=== PATIENT | female | born 1955 | race Caucasian/White ===

== ENCOUNTER 2016-11-02 06:20 | Inpatient (IN) | payer BC, OTHER ==
[2016-10-19 13:37] VITALS: BMI 34.0
--- NOTE | 2016-10-19 14:13 | PAT Medication Instructions ---
Service Date Oct 19, 2016. Current Home Medication List Acetaminophen (Tylenol), 1,000 MG PO TID Aspirin (Aspirin Ec), 81 MG PO QAM Atenolol (Tenormin), 100 MG PO QAM Atorvastatin (Lipitor), 40 MG PO QPM Canagliflozin (Invokana), 1 TAB PO QAM Clotrimazole W/ Betamethasone (Clotrimazole/Betamethason), 1 DOSE TOP Diltiazem Hcl (Cardizem), 120 MG PO QPM Esomeprazole Magnesium (Nexium), 40 MG PO QAM Fluticasone Propionate (Nasal) (Flonase Allergy Relief), 2 PUFFS INH for ALLERGIES Folic Amzu-Alnpfcxhzu-Vopgkmpu (Folbic), 1 TAB PO BID Gabapentin (Neurontin), 300-900 MG PO TID Glipizide (Glipizide Er), 1 TAB PO QAM Hctz/Lisinopril (Lisinopril/Hctz 20/25 Mg), 1 TAB PO QAM Levothyroxine Sodium (Synthroid), 150 MCG PO QAM Magnesium Oxide (Magnesium), 1 CAP PO QAM Melatonin (Melatonin Maximum Strengt), 1 TAB PO HS Menthol (Topical Analgesic) (Icy Hot), Unknown Dose for MUSCLE SORENESS Metformin Hcl (Glucophage), 1,000 MG PO BID Methocarbamol (Robaxin), 500 MG PO TID Multivitamin (Multivitamin), 1 TAB PO QAM Naproxen (Naprosyn), 500 MG PO BID Olanzapine (Zyprexa), 5 MG PO HS Medication Instructions For Your Scheduled Surgery - Hold the following medications 7-10 days prior to surgery per surgeon's instructions: Naproxen (Naprosyn), 500 MG PO BID - Hold the following medications 48 hours prior to surgery: Metformin Hcl (Glucophage), 1,000 MG PO BID - Hold the following medications 24 hours prior to surgery: Menthol (Topical Analgesic) (Icy Hot), Unknown Dose for MUSCLE SORENESS Clotrimazole W/ Betamethasone (Clotrimazole/Betamethason), 1 DOSE TOP - Hold the following medications the morning of surgery: Multivitamin (Multivitamin), 1 TAB PO QAM Hctz/Lisinopril (Lisinopril/Hctz 20/25 Mg), 1 TAB PO QAM Glipizide (Glipizide Er), 1 TAB PO QAM Methocarbamol (Robaxin), 500 MG PO TID Magnesium Oxide (Magnesium), 1 CAP PO QAM Canagliflozin (Invokana), 1 TAB PO QAM Folic Qgsr-Vpweccmbwy-Yplixrzx (Folbic), 1 TAB PO BID - Take the following medications the morning of surgery with a sip of water OTHERWISE NOTHING TO EAT OR DRINK AFTER MIDNIGHT: Acetaminophen (Tylenol), 1,000 MG PO TID (may take if needed up to 4 hours prior to surgery) Aspirin (Aspirin Ec), 81 MG PO QAM Atenolol (Tenormin), 100 MG PO QAM Esomeprazole Magnesium (Nexium), 40 MG PO QAM Gabapentin (Neurontin), 300-900 MG PO TID Levothyroxine Sodium (Synthroid), 150 MCG PO QAM Fluticasone Propionate (Nasal) (Flonase Allergy Relief), 2 PUFFS INH for ALLERGIES - Take the following medications as scheduled the night before surgery: Olanzapine (Zyprexa), 5 MG PO HS Acetaminophen (Tylenol), 1,000 MG PO TID Melatonin (Melatonin Maximum Strengt), 1 TAB PO HS Diltiazem Hcl (Cardizem), 120 MG PO QPM Atorvastatin (Lipitor), 40 MG PO QPM Methocarbamol (Robaxin), 500 MG PO TID Gabapentin (Neurontin), 300-900 MG PO TID Folic Bahi-Jfoxyzscep-Ttmlinws (Folbic), 1 TAB PO BID Fluticasone Propionate (Nasal) (Flonase Allergy Relief), 2 PUFFS INH for ALLERGIES If you have any questions please call us at [phone] or [phone] or [phone]
[2016-10-19 14:33] LABS: BASO % 0.3 %; BASO ABS # 0.02 K/uL (0-0.2); COMPLETE YES; EOS % 3.2 %; IG% 0.3 %; LYMPH % 26.7 %; LYMPH ABS # 2.11 K/uL (1.2-3.4); MEAN CELL VOLUME 78.7 fL (80-100); MEAN CORPUSCULAR HEMOGLOBIN 24.3 pg (25-34); MEAN CORPUSCULAR HGB CONC 30.8 g/dl (32-36); MEAN PLATELET VOLUME 10.2 fL (7.4-10.4); NEUT % 61.5 %; PLATELET COUNT 434 K/uL (130-400)
[2016-10-19 14:38] LABS: ESTIMATED AVERAGE GLUCOSE 157 mg/dl; HA1C FLAG Normal (Normal)
--- NOTE | 2016-10-19 14:38 | DIAGNOSTIC IMAGING REPORT ---
CHEST 2 VIEWS ROUTINE CLINICAL HISTORY: Preoperative chest COMPARISON STUDY: 06/29/2013 FINDINGS: The cardiac and mediastinal contours are normal. There is no evidence of focal pulmonary consolidation. There is no evidence of failure. No pleural effusions are visualized.[Degenerative changes are present within the dorsal spine IMPRESSION: No active disease in the chest. Electronically signed by: Thanh Bhandari M.D. 10/19/2016 2:36 PM Dictated Date/Time: 10/19/2016 2:35 PM
[2016-10-19 14:44] LABS: URINE APPEARANCE CLEAR (CLEAR); URINE BILIRUBIN NEG (NEG); URINE COLOR YELLOW; URINE NITRITE NEG (NEG); URINE SPECIFIC GRAVITY 1.016 (1.000-1.030); UROBILINOGEN NEG (NEG); ZZUR CULT IF INDIC CLEAN CATCH NO
[2016-10-19 14:49] LABS: MANUAL MICROSCOPIC REQUIRED? NO; REVIEW REQ? NO
[2016-10-19 14:49] LABS: INR 0.9 (0.9-1.1); PROTHROMBIN TIME (PATIENT) 10.1 SECONDS (9.0-12.0)
[2016-10-19 14:52] LABS: BUN/CREATININE RATIO 15.9 (10-20); CALCIUM 9.8 mg/dl (8.5-10.1); CREATININE 0.99 mg/dl (0.60-1.20)
--- NOTE | 2016-11-01 11:14 | HISTORY & PHYSICAL EXAMINATION ---
DATE OF ADMISSION: 11/02/2016 CHIEF COMPLAINT: Right knee pain. HISTORY OF PRESENT ILLNESS: Ms. Cazares is a 61-year-old female with a 1 year history of right knee pain. She rates her pain an 8/10. She has pain with her daily activities. She has limited standing and walking tolerance. Pain is worse with weightbearing. The patient has had injections, bracing, NSAIDs and home exercise program without relief. She has failed conservative treatment and is scheduled for a right knee replacement. PAST MEDICAL HISTORY: Hypertension, hypercholesterolemia, sleep apnea, thyroid disease, GERD and diabetes with A1c of 7.6. She denies heart disease or DVT. PAST SURGICAL HISTORY: Back surgery, D\T\C, hysterectomy, , wisdom tooth extraction; ganglion cyst, right hand. SOCIAL HISTORY: The patient denies alcohol or tobacco use. She lives in a 2-reg home. She is and works. FAMILY HISTORY: Negative for DVT. MEDICATIONS: Magnesium 500 mg daily, methocarbamol 500 mg t.i.d., levothyroxine 125 mcg daily, Invokana 300 mg daily, lisinopril/HCTZ 20/25 mg daily, metformin 1000 mg b.i.d., atenolol 100 mg daily, olanzapine 5 mg daily, diltiazem ER 120 mg daily, melatonin 5 mg, aspirin 81 mg, esomeprazole 40 mg, naproxen 500 mg b.i.d.,glipizide ER 10 mg, gabapentin 300 mg t.i.d., Flonase 2 puffs p.r.n., clotrimazole b.i.d., and Tylenol ES p.r.n. ALLERGIES: CODEINE, PYREDOL AND TIZANIDINE. REVIEW OF SYSTEMS: See HPI. Ten other systems reviewed, all negative. PHYSICAL EXAMINATION: VITAL SIGNS: Height 5 feet 1 inch, weight 178 pounds, BMI is 34. GENERAL: This is a well-developed, well-nourished female who is alert and oriented x3. Mood and affect are appropriate. HEENT: Normocephalic, atraumatic. Mucous membranes are moist and intact. NECK: Supple without lymphadenopathy. HEART: Regular rate and rhythm without murmurs, rubs or gallops. LUNGS: Clear to auscultation without wheezes or rhonchi. ABDOMEN: Soft and nontender. Bowel sounds are equal and active. EXTREMITIES: No ecchymosis, redness or warmth. She has a varus deformity. Range of motion is from 3-115 degrees with +1 to 2 laxity. She is neurovascularly intact with +5/5 strength. X-RAY EXAMINATION: AP and lateral views show joint space narrowing and osteophyte formation. IMPRESSION: Degenerative joint disease, right knee. PLAN: The patient will be admitted for a right total knee arthroplasty. We will plan on aspirin for DVT prophylaxis. She is doing [facility] for home physical therapy. YOLANDE
[~2016-11-02] VITALS: Ht 154.9 cm; Wt 81.7 kg
[2016-11-02] VITALS (7 sets, daily range): BP systolic 120–164; BP diastolic 60–83; PULSE 57–68; TEMP 36.5–36.9; O2SAT 92–99; Ht 154.9 cm; Wt 81.7 kg
[~2016-11-02 06:20] MED LIST: ACET-1256 PO; ACETAMINOPHEN 500 MG TAB PO SCH; ASPI81TA28 PO; ATEN100T PO; CANA1TAB3 PO; CEFAZOLIN 2000 MG/60 ML D5W 60 ML IV SCH; CLOTLOT2 TOP; CeleBREX 200 MG CAP PO SCH; DILT120T8 PO; FAMOTIDINE 20 MG TAB PO SCH; FERR325T5 PO; FLUT0.15 INH; FOLITAB21 PO; GABA300C19 PO; GABAPENTIN 300 MG CAP PO SCH; GLIP-199 PO; LACTATED RINGER'S 1000ML 1,000 ML IV SCH; LACTATED RINGER'S 1000ML 500 ML IV ONE; LACTATED RINGER'S 1000ML IV SCH; LEVO150T PO; LPT/40 PO; LSN/2025 PO; MAGN1CAP4 PO; MELATAB2 PO; MENT7.5M; METF1000 PO; METH500T37 PO; METOCLOPRAMIDE HCL 10 MG TAB PO SCH; MULT-506 PO; NAPR-1169 PO; NXM/40 PO; OLAN1TAB9 PO; OXYCODONE HCL 10 MG TABCR (OXYCONTIN) PO SCH; POLYMYXIN B SULFATE 100,000 UNITS in NSS 100ML IR SCH; ROPIVACAINE 5MG/ML 30 ML 150 MG, BUPIVACAINE/EPINEPHR 0.5% MPF 30 ML, KETOROLAC TROMETH... INFIL SCH; TRANEXAMIC ACID INJ 1,000 MG in SODIUM CHLORIDE 0.9% 100ML 100 ML IV SCH; VANCOMYCIN INJ 400 MG in NSS 100ML IR SCH
[2016-11-02] MEDS ORDERED: BUPIVACAINE 0.5 % 5 MG/1 ML PF 10ML VIAL ONE (06:23)
[2016-11-02] MEDS ORDERED: PROPOFOL IV EMULSION 10 MG/ML 20 ML VIAL IV ONE (06:48)
[2016-11-02] MEDS ORDERED: MIDAZOLAM HCL 1 MG/ML 2ML VIAL ONE (06:48)
[2016-11-02] MEDS ORDERED: LIDOCAINE HCL 2% 2 ML VIAL (20MG/ML) ONE (06:48)
[2016-11-02] MEDS ORDERED: FENTANYL CITRATE INJ 50 MCG/1 ML 2 ML VIAL ONE (06:49)
[2016-11-02] MEDS ORDERED: POVIDONE-IODINE OP SOLN 30 ML BTL ONE (07:03)
[2016-11-02] MEDS ORDERED: BUPIVACAINE/EPINEPHRINE 0.25% 1:200,000 30 ML VIAL ONE (07:03)
[2016-11-02] MEDS ORDERED: ORTHO JOINT ANESTHETIC ONE (07:03)
[2016-11-02] MEDS ORDERED: BACITRACIN 50000 UNIT VIAL ONE (07:03)
--- NOTE | 2016-11-02 07:08 | History & Physical Bridge Note ---
H&P Re-Evaluation Bridge Note: I have examined the patient, reviewed the History & Physical and in the interval since the performance of the History & Physical I have noted the following changes of clinical significance: No changes noted
[2016-11-02] MEDS: TRANEXAMIC ACID INJ 1,000 MG in SODIUM CHLORIDE 0.9% 100ML 100 ML IV SCH ×2 (08:02→12:13)
[2016-11-02] MEDS ORDERED: LACTATED RINGER'S 1000ML 1,000 ML IV PRN (08:05)
[2016-11-02] MEDS ORDERED: FENTANYL CITRATE INJ 50 MCG/1 ML 2 ML VIAL IV PRN (08:15)
[2016-11-02] MEDS ORDERED: ONDANSETRON INJ 2 MG/ML 2 ML VIAL IV PRN ×2 (08:15→10:30)
[2016-11-02] MEDS ORDERED: ONDANSETRON INJ 2 MG/ML 2 ML VIAL ONE (09:38)
--- NOTE | 2016-11-02 10:19 | [facility] Post Operative Brief Note ---
Immediate Operative Summary Operative Date Nov 02, 2016. Pre-Operative Diagnosis Right Knee Degenerative Joint Disease Post-Operative Diagnosis Right Knee Degenerative Joint Disease Procedure(s) Performed Right Total Knee Arthroplasty Surgeon Dr. Ruben Van [employer] Surgeon(s) Matt Wolff PA-C Estimated Blood Loss 75ml Findings djd Specimens A. Right Knee Bone and Tissue Complication(s) None Disposition Recovery Room / PACU
[2016-11-02] MEDS ORDERED: MAGNESIUM HYDROXIDE SUSP 30 ML UDC PO PRN (10:30)
[2016-11-02] MEDS ORDERED: TRAMADOL HCL 50 MG TAB PO PRN (10:30)
[2016-11-02] MEDS ORDERED: FLUTICASONE PROPIONATE NA SPR 16 GM BTL PRN (10:30)
[2016-11-02] MEDS ORDERED: ZOLPIDEM TARTRATE 5 MG TAB PO PRN (10:30)
[2016-11-02] MEDS ORDERED: METOCLOPRAMIDE HCL INJ 5 MG/ML 2 ML VIAL IV PRN (10:30)
[2016-11-02] MEDS ORDERED: MoRPHine SULFATE 2 MG/ML CARP IV PRN (10:30)
[2016-11-02] MEDS ORDERED: BISACODYL 10 MG SUPP PR PRN (10:30)
[2016-11-02] MEDS ORDERED: ALUMINUM/MAGNESIUM/SIMETH (MAALOX MAX) 30 ML UDC PO PRN (10:30)
[2016-11-02] MEDS ORDERED: KETOROLAC TROMETHAMINE 30 MG/ML VIAL IV. PRN (10:30)
[2016-11-02] MEDS ORDERED: DiphenhydrAMINE HCL 50 MG/ML VIAL IV PRN (10:30)
[2016-11-02] MEDS ORDERED: SOD PHOSPHATE/SOD BIPHOSPHATE ENEMA 132 ML BTL PR PRN (10:30)
[2016-11-02] MEDS ORDERED: PHARMACY GLYCEMIC MGMT CONSULT PRN (10:45)
--- NOTE | 2016-11-02 10:59 | Pharmacy Progress Note ---
Glycemic Control Intl Consult Date of Service Nov 02, 2016. Scope Glycemic Pharmacist consulted by Dr Pedro Luis Van on 11/02/16 for glycemic control and to write orders per [facility] inpatient glycemic control protocol Objective Weight (Kilograms): 81.70 Accuchecks BSG (last 24hrs): Test 11/02/16 06:36 Bedside Glucose 141 mg/dl (70-90) HbA1c Test 10/19/16 14:14 Hemoglobin A1c 7.1 % (4.5-5.6) H Recent Pertinent Medications Outpatient Anti-diabetic Regimen: * Canagliflozin 300mg PO Daily * Glipizide ER 10mg PO daily * A1c = 7.1 % 10/19/16 Risk Factors for Insulin Resistance: * Infection: pre and post op IV Ancef * Recent Surgery: POD #0 Right TKA * Diet: Type 2 DM Assessment & Plan ASSESSMENT: * 61 year old female type 2 diabetic, managed as outpatient on orals, s/p Right TKA. Random BSG = 141mg/dL. * I will begin patient on weight based correctional and prandial insulin, no basal at this time, patient did not receive any IV or PO steroids. * ADA & AACE recommend a goal blood sugar range 140-180 mg/dl for the majority of critically ill & non-critically ill patients. However, more stringent targets may be selected in individual cases. For patient's age, A1c, and to facilitate post op healing, I will use 100-140mg/dl. PLAN FOR INPATIENT GLYCEMIC CONTROL: * Holding outpatient oral diabetes medications - restart in 1-2 days, after evaluation of diet and renal function. * Correctional Insulin with NOVOLOG per scale ACHS or Q6hrs while NPO * Goal Range: Low 100 mg/dL - High 140 mg/dL * Correction Factor: 30 mg/dL/unit * Nutritional / Prandial insulin per carb ratio of 1 unit per 12 grams CHO consumed * Please note that the plan above was derived based on current level of insulin resistance and hospital stress. These recommendations are appropriate for inpatient admission only. Plan of care upon discharge will need to be reassessed to avoid potential outpatient hypo/hyperglycemia. Thank you.
[2016-11-02] MEDS ORDERED: GLUCOSE 40% GEL 15 GM TUBE PO PRN (11:00)
[2016-11-02] MEDS ORDERED: GLUCOSE 10 TABS/TUBE PO PRN (11:00)
[2016-11-02] MEDS ORDERED: DEXTROSE 50% 50 ML SYR IV PRN (11:00)
[2016-11-02] MEDS ORDERED: GLUCAGON FOR INJ 1 MG VIAL SQ PRN (11:00)
--- NOTE | 2016-11-02 11:43 | Anesthesiology Progress Note ---
Anesthesia Post Op Note Date & Time Nov 02, 2016 at 11:43 Vital Signs Pain Intensity: 0 Vital Signs Past 12 Hours Date Time Temp Pulse Resp B/P Pulse Ox O2 Delivery O2 Flow Rate FiO2 11/02/16 11:35 37 57 14 129/76 95 Mask 4 11/02/16 11:25 37 58 14 138/73 99 Mask 4 11/02/16 11:15 56 14 136/73 99 Mask 10 11/02/16 11:05 57 14 124/68 100 Mask 10 11/02/16 10:56 36.3 60 12 110/63 99 Mask 10 11/02/16 06:50 36.6 63 20 164/83 95 Room Air Notes Mental Status: alert / awake / arousable, participated in evaluation Pt Amnestic to Procedure: Yes Nausea / Vomiting: adequately controlled Pain: adequately controlled Airway Patency, RR, SpO2: stable & adequate BP & HR: stable & adequate Hydration State: stable & adequate Neuraxial Anesthesia: was administered, sensory block is resolving Anesthetic Complications: no major complications apparent
--- NOTE | 2016-11-02 11:48 | DIAGNOSTIC IMAGING REPORT ---
RIGHT KNEE 2 VIEWS History: Right total knee arthroplasty. Degenerative arthritis. Postop. FINDINGS: The patient is status post a right total knee arthroplasty. The hardware is intact. No fracture or dislocation. Surgical drains are in place. IMPRESSION: Right total knee arthroplasty. No evidence for hardware complication. Electronically signed by: Jalil Ford M.D. 11/02/2016 11:46 AM Dictated Date/Time: 11/02/2016 11:46 AM
[2016-11-02] MEDS: SODIUM CHLORIDE 0.9% 1000ML 1,000 ML IV SCH ×2 (12:13→20:25)
[2016-11-02] MEDS: INSULIN ASPART 100 UNITS/ML 3 ML PEN SC SCH ×3 (13:43→20:38)
[2016-11-02] MEDS: METHOCARBAMOL 500 MG TAB PO SCH ×2 (13:44→20:30)
[2016-11-02] MEDS: GABAPENTIN 600 MG TAB PO SCH ×2 (13:44→20:29)
[2016-11-02] MEDS: ACETAMINOPHEN 500 MG TAB PO SCH ×2 (15:26→23:12)
[2016-11-02] MEDS: CEFAZOLIN IV 2,000 MG in DEXTROSE 5% 50ML 50 ML IV SCH ×2 (15:26→23:11)
[2016-11-02] MEDS ORDERED: TRANEXAMIC ACID INJ 1,000 MG in SODIUM CHLORIDE 0.9% 100ML 100 ML IV SCH (17:00)
--- NOTE | 2016-11-02 17:15 | OPERATIVE REPORT ---
DATE OF OPERATION: 11/02/2016 PREOPERATIVE DIAGNOSIS: Degenerative arthritis, right knee. POSTOPERATIVE DIAGNOSIS: Same. PROCEDURE: Right total knee with patient matched implant. SURGEON: Dr. Van. ROUGHER OPERATOR: CRYSTAL Bartholomew. ANESTHESIA: Spinal. BLOOD LOSS: 75 mL. REPLACEMENT FLUIDS: 1500 mL crystalloid. DRAINS: Hemovac x2. CULTURES: None. COMPLICATIONS: None. COMPONENTS USED: [employer]hew Jourtuscarawas Knee System: Femur size 4, tibia size 2 x 9 constrained, and patella size 32. NOTE: CRYSTAL Bartholomew was present and assisted throughout due to the complicated nature of this case. He helped with preparation and set up, first assisted throughout and personally closed the capsule, subcutaneous and skin layers and applied the postoperative dressing. DESCRIPTION: Following satisfactory spinal, the patient was supine. A tourniquet was placed, but not inflated. The lower extremity was prepared with ChloraPrep and draped sterilely. Following a surgical time-out, a midline incision was made with a trivector approach. The knee showed grade 4 changes throughout, most marked and severe in the medial compartment. The cruciate ligaments were excised. The patient matched femoral block was applied. Femoral distal rotation and resection were set and completed. The 4-in-1 block was used to finish preparation of the femur. The patient matched tibial block was applied. Tibial resection was completed. The patella was freehand cut. Soft tissue balancing was completed and a trial reduction showed good tensioning and stability on the collateral ligaments, stable range of motion, and the patella tracked well. The trial components were removed. The capsule was prepared with the orthopedic cocktail and after irrigation, the components were cemented with Simplex G cement. A Betadine soak was performed. When the cement had hardened, the Betadine was irrigated. Two drains were placed. The arthrotomy was closed with a running suture of 0 V-Loc. The subcutaneous tissues with 2-0 Vicryl and the skin with a running subcuticular stitch of 3-0 V-Loc. Dermabond and a dry dressing were applied. The patient was returned to her bed in stable condition. I attest to the content of the Intraoperative Record and any orders documented therein. Any exceptio ns are noted below.
[2016-11-02] MEDS: OXYCODONE HCL IR 5 MG TAB (IMMEDIATE RELEASE) PO PRN (17:37)
[2016-11-02] MEDS: ASPIRIN 81 MG ECTAB PO SCH (20:29)
[2016-11-02] MEDS: OXYCODONE HCL 10 MG TABCR (OXYCONTIN) PO SCH (20:31)
[2016-11-02] MEDS ORDERED: ATORVASTATIN 40 MG TAB PO SCH (21:00)
[2016-11-02] MEDS ORDERED: SENNA 8.6 MG TAB PO SCH (21:00)
[2016-11-02] MEDS ORDERED: DILTIAZEM HCL 120 MG CAPCR PO SCH (21:00)
[2016-11-02] MEDS ORDERED: OLANZAPINE 5 MG TAB PO SCH (21:00)
[2016-11-03 03:20] VITALS: BP 126/67; PULSE 56; TEMP 36.4; O2SAT 91
[2016-11-03] MEDS: SODIUM CHLORIDE 0.9% 1000ML 1,000 ML IV SCH (05:43)
[2016-11-03 05:54] LABS: MEAN CELL VOLUME 79.2 fL (80-100); MEAN CORPUSCULAR HEMOGLOBIN 24.3 pg (25-34); MEAN CORPUSCULAR HGB CONC 30.7 g/dl (32-36); MEAN PLATELET VOLUME 9.9 fL (7.4-10.4); PLATELET COUNT 324 K/uL (130-400); RED BLOOD COUNT 3.79 M/uL (4.2-5.4); WHITE BLOOD COUNT 11.78 K/uL (4.8-10.8)
[2016-11-03] MEDS ORDERED: LEVOTHYROXINE 150 MCG TAB PO SCH (06:00)
[2016-11-03 06:21] LABS: BUN/CREATININE RATIO 16.1 (10-20); CALCIUM 8.1 mg/dl (8.5-10.1); CREATININE 0.93 mg/dl (0.60-1.20); POTASSIUM 4.2 mmol/L (3.5-5.1)
[2016-11-03 07:29] VITALS: BP 162/74; PULSE 64; TEMP 36.8; O2SAT 99
[2016-11-03] MEDS: ACETAMINOPHEN 500 MG TAB PO SCH (08:02)
[2016-11-03] MEDS ORDERED: ACET-1256 PO (08:12)
[2016-11-03] MEDS ORDERED: ONDA8TAB6 PO (08:12)
[2016-11-03] MEDS ORDERED: CLB200 PO (08:12)
[2016-11-03] MEDS ORDERED: MORP-157 PO (08:12)
[2016-11-03] MEDS ORDERED: ASPI81TA28 PO (08:12)
[2016-11-03] MEDS ORDERED: RXC5 PO (08:12)
[2016-11-03] MEDS ORDERED: SNK PO (08:12)
--- NOTE | 2016-11-03 08:14 | Discharge Instructions ---
Discharge Instructions Date of Service Nov 03, 2016. Admission Reason for Admission: Right Knee Degenerative Arthritis Discharge Discharge Diagnosis / Problem: sp right total knee Discharge Goals Goal(s): Decrease discomfort, Improve function, Increase independence Activity Recommendations Activity Limitations: per Instructions/Follow-up section . Instructions / Follow-Up Instructions / Follow-Up ACTIVITY RECOMMENDATIONS: SELF CARE INSTRUCTIONS AFTER TOTAL KNEE REPLACEMENT A. You may need to continue a physical therapy program after discharge from the hospital. There are several options available to you. Your doctor will assist you in selecting the best one for you. 1. An out-patient facility 2 to 3 times a week for therapy or home therapy. 2. Continue working on all exercises taught to you in the hospital. Your goals should be to increase bending of your knee to 90 degrees and beyond and to fully straighten your knee. B. You may progress at your own pace from walking with a walker or crutches to a cane; then to no assistive devices. C. Make walking a part of your daily routine. Be up as much as comfortable with rest periods throughout the day. Rest with leg elevation is very important. Use the ice wrap frequently for the first 3-4 weeks. D. There are no restrictions on activities. You may ride in a car, shop, participate in high tension tester and all social activities. E. Wear the long elastic stockings (ALEENA hose) 20 hours a day for 2 weeks after surgery. They can be removed several times a day for laundering and for a bath. F. You may shower, no tub baths until cleared by your doctor. SPECIAL CARE INSTRUCTIONS: VERY IMPORTANT TO READ AND REVIEW A. There are a few signs you need to watch for after you are home. Call [facility] if you notice any of the followin. Increased severe knee pain. Some pain is expected especially when you exercise. 2. Increased swelling in your leg or knee; pain or swelling of the calf muscle in either lower leg. 3. Any fluid drainage from the incision. 4. Shortness of breath or chest pain. B. Please call [facility] at if you have any concerns or questions about your operation or recovery. The doctor or his nurse will return your call promptly. C. You must take antibiotics before dental work, bladder, bowel or other surgery. Your doctor will provide you with a permanent care to carry describing this precaution. IMPORTANT: * REMEMBER TO TAKE ASPIRIN, 81 MG, TWICE DAILY FOR 4 WEEKS UNLESS OTHERWISE DIRECTED. THIS IS YOUR BLOOD THINNER. * HIGH RISK PATIENTS MAY BE PRESCRIBED A STRONGER BLOOD THINNER. THIS WILL BE PROVIDED AT DISCHARGE. * CALL IF INCREASED PAIN, REDNESS, DRAINAGE OR FEVER GREATER THAT 101. * WEAR ALEENA HOSE 20 HOURS PER DAY FOR 2 WEEKS. DERMABOND Prineo- This is a mesh tape dressing that is covered with glue. It should remain in place until the incision is properly healed, usually 10-14 days. This dressing is designed to naturally slough off. You may trim the excess mesh tape as it peels off. Incision may be briefly wet in a shower. Dry immediately by blotting with a clean, dry towel. Do not bath or swim until instructed by your doctor. Do not scratch, rub, or pick at the dressing. Do not apply any topical ointments or lotions until dressing is completely removed and/or instructed by your doctor. There may be a small piece of suture material at one end of your incision. Do not pull or trim this. If it is bothersome or catching on clothing, you may cover it with a band-aid. FOLLOW UP VISIT: If appointment is not already scheduled: Please call [facility] to make a follow-up appointment for 2 weeks after your surgery at . Current Hospital Diet Patient's current hospital diet: Diabetes Type 2 Diet Discharge Diet Recommended Diet: Regular Diet Procedures Procedures Performed: Right Total Knee Arthroplasty Pending Studies Studies pending at discharge: no Laboratory Results Hemoglobin A1c Test 10/19/16 14:14 Range/Units Estimated Average Glucose 157 mg/dl Hemoglobin A1c 7.1 H 4.5-5.6 % Medical Emergencies . Who to Call and When: Medical Emergencies: If at any time you feel your situation is an emergency, please call 911 immediately. . Non-Emergent Contact Non-Emergency issues call your: Primary Care Provider . "Provider Documentation" section prepared by Shruthi Lopez. VTE Core Measure Inpt VTE Proph given/why not?: Other Anticoagulation, T.E.D. Stockings, SCD's [place] Drug Monitoring Program Search Results: patient reviewed within database, no issues identified
--- NOTE | 2016-11-03 08:21 | Orthopedic Progress Note ---
Orthopedic Progress Note Date of Service Nov 03, 2016. Subjective Post OP Day: 1 Reports: feeling well, Denies: SOB, calf pain, chest pain, light headedness, nausea / vomiting Objective calves soft nontender, N/V intact, dressing C/D/I, A&O x3, toes mobile, hemovac drainage (225/60cc per shift) Date Time Temp Pulse Resp B/P Pulse Ox O2 Delivery O2 Flow Rate FiO2 11/03/16 07:29 36.8 64 14 162/74 99 Room Air 11/03/16 03:20 36.4 56 16 126/67 91 BiPAP 11/02/16 23:25 36.5 57 16 120/68 92 BiPAP 11/02/16 23:16 CPAP 11/02/16 15:17 36.9 61 16 135/75 99 Nasal Cannula 2.0 11/02/16 15:15 Nasal Cannula 2.0 11/02/16 13:45 68 16 152/75 94 2.0 11/02/16 12:45 36.7 60 16 147/79 92 2.0 11/02/16 12:11 98 Nasal Cannula 2.0 11/02/16 12:11 61 16 140/60 97 2.0 11/02/16 11:45 36.8 16 132/73 98 Nasal Cannula 11/02/16 11:45 98 Nasal Cannula 2.0 11/02/16 11:35 37 57 14 129/76 95 Mask 4 11/02/16 11:25 37 58 14 138/73 99 Mask 4 11/02/16 11:15 56 14 136/73 99 Mask 10 11/02/16 11:05 57 14 124/68 100 Mask 10 11/02/16 10:56 36.3 60 12 110/63 99 Mask 10 Laboratory Results 24 Hours: Test 11/03/16 05:34 Hematocrit 30.0 % Hemoglobin 9.2 g/dL Assessment & Plan Assessment: POD#1 SP RIGHT TKA Inhouse Planning Pain Management: Celebrex, Oxycontin, PO Tylenol, Oxy IR DVT Prophylaxis: TEDs, SCDs, ASA Discharge Planning Discharge Planning: home with home health ([facility] TODAY [facility])
[2016-11-03 08:22] VITALS: O2SAT 91
[2016-11-03 08:23] VITALS: BP 152/84; PULSE 62; O2SAT 91
--- NOTE | 2016-11-03 08:36 | Anesthesiology Progress Note ---
Anesthesia Post Op Note Date & Time Nov 03, 2016 at 08:36 Vital Signs Pain Intensity: 2.0 Vital Signs Past 12 Hours Date Time Temp Pulse Resp B/P Pulse Ox O2 Delivery O2 Flow Rate FiO2 11/03/16 08:23 62 152/84 91 Room Air 11/03/16 08:22 91 Room Air 11/03/16 07:29 36.8 64 14 162/74 99 Room Air 11/03/16 07:25 Room Air 11/03/16 03:20 36.4 56 16 126/67 91 BiPAP 11/02/16 23:25 36.5 57 16 120/68 92 BiPAP 11/02/16 23:16 CPAP Notes Mental Status: alert / awake / arousable, participated in evaluation Pt Amnestic to Procedure: Yes Nausea / Vomiting: adequately controlled Pain: adequately controlled Airway Patency, RR, SpO2: stable & adequate BP & HR: stable & adequate Hydration State: stable & adequate Neuraxial Anesthesia: sensory block resolved Anesthetic Complications: no major complications apparent
[2016-11-03] MEDS: INSULIN ASPART 100 UNITS/ML 3 ML PEN SC SCH ×2 (08:44→12:30)
[2016-11-03] MEDS: ASPIRIN 81 MG ECTAB PO SCH (08:59)
[2016-11-03] MEDS ORDERED: LISINOPRIL/HCTZ 20/25MG TAB PO SCH (09:00)
[2016-11-03] MEDS ORDERED: NON-FORMULARY MEDICATION (Glipizide (Glipizide Er) 1 TAB) PO SCH (09:00)
[2016-11-03] MEDS ORDERED: NON-FORMULARY MEDICATION (Canagliflozin (Invokana) 1 TAB) PO SCH (09:00)
[2016-11-03] MEDS ORDERED: MULTIVITAMIN TAB PO SCH (09:00)
[2016-11-03] MEDS ORDERED: PANTOprazole SOD 40 MG TAB PO SCH (09:00)
[2016-11-03] MEDS ORDERED: MAGNESIUM OXIDE 400 MG TAB PO SCH (09:00)
[2016-11-03] MEDS: GABAPENTIN 600 MG TAB PO SCH (09:01)
[2016-11-03] MEDS: OXYCODONE HCL 10 MG TABCR (OXYCONTIN) PO SCH (09:02)
[2016-11-03] MEDS: METHOCARBAMOL 500 MG TAB PO SCH (09:05)
[2016-11-03] MEDS: OXYCODONE HCL IR 5 MG TAB (IMMEDIATE RELEASE) PO PRN ×2 (09:10→13:08)
[2016-11-03 11:49] VITALS: BP 120/70; PULSE 60; O2SAT 94
[2016-11-03 12:23] VITALS: BP 152/84; PULSE 62; TEMP 36.8; O2SAT 91
[2016-11-03] MEDS ORDERED: METFORMIN HCL 500 MG TAB PO SCH (17:45)
--- NOTE | 2016-11-04 15:44 | DISCHARGE SUMMARY ---
DISCHARGE DIAGNOSIS: Degenerative joint disease, right knee. SECONDARY DIAGNOSES: Hypertension, hypercholesterolemia, sleep apnea, thyroid disease, gastroesophageal reflux disease, diabetes mellitus. CONSULTS: None. COMPLICATIONS: None. PROCEDURES: Right total knee arthroplasty performed by Dr. Tre Van on 11/02/2016. BRIEF HISTORY OF PRESENT ILLNESS: As dictated in the history and physical. HOSPITAL SUMMARY: The patient was admitted on the above date and had the above-noted surgery performed which she tolerated well. On the first postoperative day, the patient was feeling well and had no complaints. Calves were soft, nontender, neurovascularly intact. Dressings were clean, dry and intact. Toes were mobile. Vital signs were stable and she was afebrile and hemoglobin was 9.2. She was started on physical therapy protocol and continued on DVT prophylaxis and pain management. It was noted that she was progressing well with physical therapy and remaining stable and it was felt she could be discharged to home on 11/03/2016. For further review, please see chart. LABORATORY AND X-RAY DATA: As per chart. DISCHARGE INSTRUCTIONS: The patient was discharged to home in satisfactory condition on 11/03/2016. DIET: Diabetic. ACTIVITY: Follow TKA instruction sheets and special care instructions as noted. Follow up with Dr. Tre Van in 2 weeks. The patient to call for appointment if one has not been made for you. DISCHARGE MEDICATIONS: Celebrex 200 mg p.o. b.i.d., morphine sulfate 15 mg p.o. q. 12 hours, Zofran 8 mg p.o. q. 8 hours p.r.n., oxycodone 5-10 mg p.o. q. 4 hours p.r.n., senna 17.2 mg at bedtime and resume home medications as listed per med rec, aspirin 81 mg p.o. b.i.d. for 30 days and after 30 days, please stop taking twice daily and resume to once daily dosing, stop taking naproxen.
[2016-11-04] MEDS ORDERED: CeleBREX 200 MG CAP PO SCH (21:00)
== END 2016-11-03 13:15 | disposition home health service (06) | DRG 470 ==
LOC: ENRESERVDT → ENRESERVTM → C.ACU 06:20 → C.3E 10:19
PROVIDERS: ADMIT Orthopaedic Surgery; ATTEND Orthopaedic Surgery
PROC: 0SRC0J9 Replacement of Right Knee Joint with Synthetic Substitute, Cemented, Open Approach (ICD-10-PCS; principal; 2016-11-02 08:15)
DX: M17.11 Unilateral primary osteoarthritis, right knee (principal); M21.161 Varus deformity, not elsewhere classified, right knee; I10 Essential (primary) hypertension; E78.00 Pure hypercholesterolemia, unspecified; K21.9 Gastro-esophageal reflux disease without esophagitis; E07.9 Disorder of thyroid, unspecified; G47.30 Sleep apnea, unspecified; E11.42 Type 2 diabetes mellitus with diabetic polyneuropathy; E66.1 Drug-induced obesity; Z68.34 Body mass index [BMI] 34.0-34.9, adult; Z99.89 Dependence on other enabling machines and devices; Z98.1 Arthrodesis status; Z79.1 Long term (current) use of non-steroidal anti-inflammatories (NSAID); Z79.82 Long term (current) use of aspirin; Z79.899 Other long term (current) drug therapy; Z79.84 Long term (current) use of oral hypoglycemic drugs

== ENCOUNTER 2018-10-26 08:06 | Inpatient (IN) ==
--- NOTE | 2018-09-20 12:05 | Anesthesiology Consultation ---
Date of Service September 20, 2018 Assessment & Plan (1) Encounter for pre-operative examination: Plan: - Check BSG AM DOS - Na 130 on 09/20/18 preop labs; normalized on recheck by PCP 09/24/18 Chart Review Chart Review: Acceptable Risk for Surgery (pending surgeon-ordered PCP preop evaluation scheduled 10/11 ([place]; [place])) and Patient seen in Pre Admission Testing Teaching & Discussion Pre-Anesthesia Teaching/Discussion Notes: Instructed NPO after midnight before surgery,except medications with 15 cc of water. Medication instructions provided according to the PAT guidelines. History Surgery Operation Date: 10/26/18 09:50 Proposed Procedures p Left Total Knee Arthroplasty - Fidel Garza MD Height/Weight Height: 5 ft 1 in Weight: 86.183 kg Allergies Allergy/AdvReac Type Severity Reaction Status Date / Time tizanidine Allergy Unknown PALPATATION Verified 09/14/18 14:27 S bromocriptine AdvReac Unknown NAUSEA AND Verified 09/14/18 14:27 VOMITING codeine AdvReac Unknown NAUSEA AND Verified 09/14/18 14:27 VOMITING Medications Home Medications Medication Instructions Recorded Confirmed Last Taken Energy Pill 1 tab PO QAM 09/14/18 09/14/18 Unknown [id number]-s-[id number] [Beano] 1 tab PO DAILY PRN 09/14/18 09/14/18 Unknown amoxicillin 500 mg PO DIRECTED PRN 09/14/18 09/14/18 Unknown aspirin [Aspirin Low Dose] 81 mg PO QAM 09/14/18 09/14/18 Unknown atorvastatin 40 mg PO AC 09/14/18 09/14/18 Unknown azelastine 1 spray INTRANASAL BID 09/14/18 09/14/18 Unknown calcium carbonate-vitamin D3 1 tab PO BID 09/14/18 09/14/18 Unknown [Calcium 600 + D(3)] kqouxst-bdrwrlzeb-vzbu 1 tab PO QAM 09/14/18 09/14/18 Unknown canagliflozin [Invokana] 300 mg PO QAM 09/14/18 09/14/18 Unknown cetirizine [Zyrtec] 10 mg PO QPM 09/14/18 09/14/18 Unknown diltiazem HCl 120 mg PO DAILY 09/14/18 09/14/18 Unknown esomeprazole magnesium 40 mg PO QAM 09/14/18 09/14/18 Unknown ferrous sulfate 325 mg PO DAILY PRN 09/14/18 09/14/18 Unknown fluticasone [Flonase Allergy 1 spray INTRANASAL BID 09/14/18 09/14/18 Unknown Relief] folic acid 1 mg PO BID 09/14/18 09/14/18 Unknown folic acid-vit B6-vit B12 [Folbic] 1 tab PO BID 09/14/18 09/14/18 Unknown gabapentin 300 mg PO BID 09/14/18 09/14/18 Unknown gabapentin 900 mg PO PM 09/14/18 09/14/18 Unknown glipizide 5 mg PO BID 09/14/18 09/14/18 Unknown glipizide 10 mg PO QAM 09/14/18 09/14/18 Unknown levothyroxine 125 mcg PO QAM 09/14/18 09/14/18 Unknown lisinopril-hydrochlorothiazide 1 tab PO QAM 09/14/18 09/14/18 Unknown melatonin 5 mg PO HS 09/14/18 09/14/18 Unknown metformin 1,000 mg PO BID 09/14/18 09/14/18 Unknown methocarbamol 750 mg PO BID 09/14/18 09/14/18 Unknown metoprolol tartrate 50 mg PO QAM 09/14/18 09/14/18 Unknown multivitamin 1 tab PO QAM 09/14/18 09/14/18 Unknown naproxen 500 mg PO BIDM 09/14/18 09/14/18 Unknown olanzapine 5 mg PO QPM 09/14/18 09/14/18 Unknown omega 5-wuu-xhn-fish oil [Fish Oil] 1 cap PO QAM 09/14/18 09/14/18 Unknown promethazine 25 mg PO Q6H PRN 09/14/18 09/14/18 Unknown Aspercreme Heat 09/20/18 Unknown Icy Hot 09/20/18 Unknown Tylenol 09/20/18 Unknown Past Medical History Medical History Anemia Diabetes mellitus, type 2 NIDDM GERD (gastroesophageal reflux disease) CONTROLLED Hyperlipidemia Hypertension Hypothyroidism Osteoarthritis Sleep apnea CPAP Past Surgical History Surgical History History of X2 History of back surgery L4-S1 History of surgical removal of ganglion cyst RIGHT History of total right knee replacement Hx of dilation and curettage x2 Hx of hand surgery B/L TRIGGER FINGERS Hx of hysterectomy TOTAL Hx of wisdom tooth extraction POST C/S TOXEMIA 30+ YEARS AGO Past Anesthesia History No Hx of Anesthesia Complications (EXECEPT PONV) and No Family Hx of Anesthesia Complications History of PONV Yes Motion Sickness Screening History of Motion Sickness: Yes (REMOTE) Social History Smoking Status: Never smoker Do You Dip or Chew Tobacco: No Hx Alcohol Use: No Hx Substance Use: No Exercise / Class Metabolic Activity II 4-5 Yardwork/Stairs/Walk up hill Review of Systems Patient denies chest pain, shortness of breath, dyspnea on exertion, wheezing, palpitations. Physical Exam Vital Signs VITALS BP 145/63 P 87 TEMP 98.0 SP02 93%RA RESP 18 Full neck and c-spine range of motion. Full TMJ range of motion. TMD 3 finger breaths Mallampati Score 3 Dentition: intact, crowns Lungs: clear throughout to auscultation Cardiac: regular rate and rhythm, no murmurs noted Spine: normal Carotid arteries: negative bruit Extremities: no edema Testing Electrocardiogram Date: 09/20/18 Findings: + NSR @ (70) Chest X-Ray Date: 09/20/18 Findings: + NAD and + atherosclerosis of thoracic aorta Laboratory Results 09/20/18 12:15 09/20/18 12:15 Blood Type O Positive 09/20/18 12:15 Antibody Screen NEGATIVE 09/20/18 12:15 PT 10.1 Seconds (9.0-12.0) 09/20/18 12:15 INR 1.0 (0.9-1.1) 09/20/18 12:15 APTT 27.8 Seconds (21.0-31.0) 09/20/18 12:15 Hemoglobin A1c 6.7 % (4.5-5.6) H 09/20/18 12:15 Urine Color Yellow 09/20/18 12:15 Urine Appearance Clear (Clear) 09/20/18 12:15 Urine pH 5.5 (4.5-7.5) 09/20/18 12:15 Ur Specific [place] 1.022 (1.000-1.030) 09/20/18 12:15 Urine Protein Negative (Negative) 09/20/18 12:15 Urine Glucose (UA) 3+ (Negative) H 09/20/18 12:15 Urine Ketones Negative (Negative) 09/20/18 12:15 Urine Nitrite Negative (Negative) 09/20/18 12:15 Ur Leukocyte Esterase Negative (Negative) 09/20/18 12:15 09/20/18 Unknown Urine Culture - Final Urine,Clean Catch More than three types of organisms present, all low counts mixed probable skin fadi. No further identifications or sensitivities to follow. 09/24/18 (new labs) NA 141 K 4.4 CL 106 CO2 26.0 BUN 28.9 CREATININE 0.94 GLUCOSE 120 Na 130 on 09/20/18 preop labs; normalized on recheck by PCP 09/24/18
--- NOTE | 2018-09-20 12:13 | PAT Medication Instructions ---
Medication Instructions Date of Service September 20, 2018 Home Medications Energy Pill 1 tab PO QAM kqlfl-e-zbcjcqkowtztd [Beano] 1 tab PO DAILY PRN amoxicillin 500 mg PO DIRECTED PRN aspirin [Aspirin Low Dose] 81 mg PO QAM atorvastatin 40 mg PO AC azelastine 1 spray INTRANASAL BID calcium carbonate-vitamin D3 1 tab PO BID yexabyf-wioggrocq-vjbv 1 tab PO QAM canagliflozin [Invokana] 300 mg PO QAM cetirizine [Zyrtec] 10 mg PO QPM diltiazem HCl 120 mg PO DAILY esomeprazole magnesium 40 mg PO QAM ferrous sulfate 325 mg PO DAILY PRN fluticasone [Fl nase Allergy 1 spray INTRANASAL BID folic acid 1 mg PO BID folic acid-vit B6-vit B12 [Folbic] 1 tab PO BID gabapentin 300 mg PO BID gabapentin 900 mg PO PM glipizide 5 mg PO BID glipizide 10 mg PO QAM levothyroxine 125 mcg PO QAM lisinopril-hydrochlorothiazide 1 tab PO QAM melatonin 5 mg PO HS metformin 1,000 mg PO BID methocarbamol 750 mg PO BID metoprolol tartrate 50 mg PO QAM multivitamin tab PO QAM naproxen 500 mg PO BIDM olanzapine 5 mg PO QPM omega 9-qhb-kbu-fish oil [Fish Oil] 1 cap PO QAM promethazine 25 mg PO Q6H PRN APAP Icy Hot Aspercreme Continue as directed amoxicillin 500 mg PO DIRECTED PRN (if needed) ASK your surgeon for instructions naproxen 500 mg PO BIDM STOP taking 2 weeks before surgery (or as soon as possible if surgery is within 2 weeks) omega 5-cvb-eql-fish oil [Fish Oil] 1 cap PO QAM STOP taking 24 hours before surgery Icy Hot Aspercreme DO NOT take the morning of surgery Energy Pill 1 tab PO QAM yqpws-z-wqwcnhvrixmrg [Beano] 1 tab PO DAILY PRN calcium carbonate-vitamin D3 1 tab PO BID lpjfcox-qhufwexnu-ducy 1 tab PO QAM ferrous sulfate 325 mg PO DAILY PRN folic acid 1 mg PO BID folic acid-vit B6-vit B12 [Folbic] 1 tab PO BID glipizide 5 mg PO BID glipizide 10 mg PO QAM lisinopril-hydrochlorothiazide 1 tab PO QAM metformin 1,000 mg PO BID methocarbamol 750 mg PO BID multivitamin tab PO QAM Take morning of surgery With a small sip of water, OTHERWISE NOTHING TO EAT OR DRINK AFTER MIDNIGHT: aspirin [Aspirin Low Dose] 81 mg PO QAM atorvastatin 40 mg PO AC azelastine 1 spray INTRANASAL BID diltiazem HCl 120 mg PO DAILY esomeprazole magnesium 40 mg PO QAM fluticasone [Fl nase Allergy 1 spray INTRANASAL BID gabapentin 300 mg PO BID levothyroxine 125 mcg PO QAM metoprolol tartrate 50 mg PO QAM promethazine 25 mg PO Q6H PRN (if needed) Tyelnol (okay to take up to 4 hours prior to surgery if needed) Other Notes If you have any questions please call us at [phone] or [phone] or [phone] or [phone]
--- NOTE | 2018-09-20 12:53 | XRay Report ---
XR chest Pre-admission PA/Lat CLINICAL HISTORY: 63 years-old Female presenting with preoperative assessment. TECHNIQUE: PA and lateral views of the chest were obtained. COMPARISON: 10/19/2016. FINDINGS: Atherosclerosis of the aortic arch. Cardiac silhouette top normal in size. Lungs and pleural spaces c lear. Degenerative changes of the thoracic spine. Upper abdomen normal. IMPRESSION: 1. No acute cardiopulmonary disease. Electronically signed by: Fidel Muro M.D. 09/20/2018 12:51 PM
[2018-09-20 13:27] LABS: Basophils # (auto) 0.03 K/uL (0-0.2); Basophils % (auto) 0.4 %; Eosinophils # (auto) 0.21 K/uL (0-0.5); Eosinophils % (auto) 2.6 %; Hematocrit (blood only) 42.2 % (37-47); Hemoglobin 14.2 g/dL (12.0-16.0); Immature Granulocytes # (auto) 0.02 K/uL (0.00-0.02); Immature Granulocytes % (auto) 0.3 %; Lymphocytes # (auto) 2.27 K/uL (1.2-3.4); Lymphocytes % (auto) 28.4 %; Mean Corpuscular Hgb Conc 33.6 g/dL (32-36); Mean Corpuscular Volume 93.4 fL (80-100); Mean Platelet Volume 10.6 fL (7.4-10.4); Monocytes # (auto) 0.64 K/uL (0.11-0.59); Neutrophils # (auto) 4.83 K/uL (1.4-6.5); Neutrophils % (auto) 60.3 %; Platelet Count 310 K/uL (130-400); RDW Coefficient of Variation 13.7 % (11.5-14.5); RDW Standard Deviation 46.8 fL (36.4-46.3); Red Blood Count 4.52 M/uL (4.2-5.4)
[2018-09-20 13:38] LABS: Appearance Urine Clear (Clear); Bilirubin Urine Negative (Negative); Blood Urine Negative (Negative); Color Urine Yellow; Glucose Urine UA 3+ (Negative); Ketones Urine Negative (Negative); Leukocyte Esterase Urine Negative (Negative); Nitrite Urine Negative (Negative); Protein Urine Negative (Negative); Specific Gravity Urine 1.022 (1.000-1.030); Urobilinogen Urine Negative (Negative); pH Urine 5.5 (4.5-7.5)
[2018-09-20 13:39] LABS: Albumin Level 4.2 gm/dl (3.4-5.0); BUN Creatinine Ratio 19.9 (10-20); Calcium 9.8 mg/dl (8.5-10.1); Creatinine Clr Calc Pharmacy 49.5 ml/min; Est GFR (Non-African American) 50.1; Potassium 4.4 mmol/L (3.5-5.1)
[2018-09-20 13:55] LABS: Partial Thromboplastin Ratio 1.1; Partial Thromboplastin Time 27.8 Seconds (21.0-31.0); Prothrombin Time 10.1 Seconds (9.0-12.0)
[2018-09-20 13:59] LABS: Estimated Average Glucose 146 mg/dl; Hemoglobin A1C 6.7 % (4.5-5.6)
--- NOTE | 2018-09-21 14:46 | History & Physical Report ---
Date of Service September 21, 2018 Assessment & Plan (1) Primary osteoarthritis of left knee: Patient is having significant left knee pain. Treatment options were discussed. She has failed conservative measures including cortisone injections, antiinflammatory medications, and viscosupplementation. She would like to proceed with surgical intervention. Risks, benefits and alternatives to surgery including but not limited to infection, DVT, pain, stiffness, need for revision surgery, damage to blood vessels, damage to nerves, PE, , were discussed with the patient and they wish to proceed. Plan will be for left total knee arthroplasty. DVT prophylaxis will be aspirin 81mg BID x 30 days. She plans on home health PT upon discharge from the hospital. We will plan on V-loc and prineo/dermabond for skin closure. She will follow up post operatively. History of Present Illness Chief Complaint: Left knee pain Primary Care Provider: Olena Loaiza 63 year old female who presents with left knee pain for several months to years. Past medical history significant for HTN, high cholesterol, hypothyroid, ART, DM2, GERD. She has failed conservative measures including cortisone injections, viscosupplementation, and anti-inflammtory medications. She would like to proceed with left total knee arthroplasty. Patient denies headaches, sweats, fevers, chills, double vision, blurred vision, cough, sore throat, dysphagia, chest pain, sob, wheezing, n/v/d/c, numbness, tingling, fatigue, urinary symptoms, mood disorders. ROS positive for left knee pain and stiffness. Allergies Allergy/AdvReac Type Severity Reaction Status Date / Time tizanidine Allergy Unknown PALPATATION Verified 09/14/18 14:27 S bromocriptine AdvReac Unknown NAUSEA AND Verified 09/14/18 14:27 VOMITING codeine AdvReac Unknown NAUSEA AND Verified 09/14/18 14:27 VOMITING Home Medications Home Medications Medication Instructions Recorded Confirmed Type Energy Pill 1 tab PO QAM 09/14/18 09/14/18 History jgvau-r-uquzwrqadsgam [Beano] 1 tab PO DAILY PRN 09/14/18 09/14/18 History amoxicillin 500 mg PO DIRECTED PRN 09/14/18 09/14/18 History aspirin [Aspirin Low Dose] 81 mg PO QAM 09/14/18 09/14/18 History atorvastatin 40 mg PO AC 09/14/18 09/14/18 History azelastine 1 spray INTRANASAL BID 09/14/18 09/14/18 History calcium carbonate-vitamin D3 1 tab PO BID 09/14/18 09/14/18 History [Calcium 600 + D(3)] pxgzosf-otqcflgzj-xqpw 1 tab PO QAM 09/14/18 09/14/18 History canagliflozin [Invokana] 300 mg PO QAM 09/14/18 09/14/18 History cetirizine [Zyrtec] 10 mg PO QPM 09/14/18 09/14/18 History diltiazem HCl 120 mg PO DAILY 09/14/18 09/14/18 History esomeprazole magnesium 40 mg PO QAM 09/14/18 09/14/18 History ferrous sulfate 325 mg PO DAILY PRN 09/14/18 09/14/18 History fluticasone [Flonase Allergy 1 spray INTRANASAL BID 09/14/18 09/14/18 History Relief] folic acid 1 mg PO BID 09/14/18 09/14/18 History folic acid-vit B6-vit B12 [Folbic] 1 tab PO BID 09/14/18 09/14/18 History gabapentin 300 mg PO BID 09/14/18 09/14/18 History gabapentin 900 mg PO PM 09/14/18 09/14/18 History glipizide 5 mg PO BID 09/14/18 09/14/18 History glipizide 10 mg PO QAM 09/14/18 09/14/18 History levothyroxine 125 mcg PO QAM 09/14/18 09/14/18 History lisinopril-hydrochlorothiazide 1 tab PO QAM 09/14/18 09/14/18 History melatonin 5 mg PO HS 09/14/18 09/14/18 History metformin 1,000 mg PO BID 09/14/18 09/14/18 History methocarbamol 750 mg PO BID 09/14/18 09/14/18 History metoprolol tartrate 50 mg PO QAM 09/14/18 09/14/18 History multivitamin 1 tab PO QAM 09/14/18 09/14/18 History naproxen 500 mg PO BIDM 09/14/18 09/14/18 History olanzapine 5 mg PO QPM 09/14/18 09/14/18 History omega 0-ebf-ckf-fish oil [Fish Oil] 1 cap PO QAM 09/14/18 09/14/18 History promethazine 25 mg PO Q6H PRN 09/14/18 09/14/18 History Aspercreme Heat 09/20/18 History Icy Hot 09/20/18 History Tylenol 09/20/18 History Past Med/Surg History Medical History Anemia Diabetes mellitus, type 2 NIDDM GERD (gastroesophageal reflux disease) CONTROLLED Hyperlipidemia Hypertension Hypothyroidism Osteoarthritis Sleep apnea CPAP Surgical History History of X2 History of back surgery L4-S1 History of surgical removal of ganglion cyst RIGHT History of total right knee replacement Hx of dilation and curettage x2 Hx of hand surgery B/L TRIGGER FINGERS Hx of hysterectomy TOTAL Hx of wisdom tooth extraction Social History Current Living Situation: Spouse Other Information That Helps Us Care for You: No Feels Safe at Home: Yes Safety Concerns: Feels Safe At This Time Smoking Status: Never smoker Do You Dip or Chew Tobacco: No Hx Alcohol Use: No Hx Substance Use: No Beliefs That Will Affect Care: None Preferred Language: Slovak Communication Ability: Effective Review of Systems All systems reviewed & are unremarkable except as noted in HPI & below Physical Exam 2 Constitutional: well developed and well nourished; no acute distress Eyes: PERRL, conjunctivae normal, anicteric sclerae ENMT: external ear and nose normal, oropharynx normal Neck: trachea midline, no thyromegaly Respiratory: normal respiratory effort, lungs clear to auscultation Cardiovascular: RRR, no murmur, no edema Musculoskeletal: Left knee: ROM 0-130, moderate crepitus with ROM. Medial joint line tenderness, mild varus alignment. Stable to valgus and varus stress. Skin: no rashes, warm and dry Neurologic: patellar DTR's 2+ bilat, sensation intact Psychiatric: A+Ox3, euthymic affect Results & Data Laboratory Results Lab Results 09/20/18 09/20/18 09/20/18 Range/Units 12:15 12:15 12:15 WBC 8.00 (4.8-10.8) K/uL RBC 4.52 (4.2-5.4) M/uL Hgb 14.2 (12.0-16.0) g/dL Hct 42.2 (37-47) % MCV 93.4 (80-100) fL MCH 31.4 (25-34) pg MCHC 33.6 (32-36) g/dL RDW Std Deviation 46.8 H (36.4-46.3) fL RDW Coeff of Rian 13.7 (11.5-14.5) % Plt Count 310 (130-400) K/uL MPV 10.6 H (7.4-10.4) fL Immature Gran % (Auto) 0.3 % Neut % (Auto) 60.3 % Lymph % (Auto) 28.4 % [place] % (Auto) 8.0 % Eos % (Auto) 2.6 % Baso % (Auto) 0.4 % Immature Gran # (Auto) 0.02 (0.00-0.02) K/uL Neut # (Auto) 4.83 (1.4-6.5) K/uL Lymph # (Auto) 2.27 (1.2-3.4) K/uL [place] # (Auto) 0.64 H (0.11-0.59) K/uL Eos # (Auto) 0.21 (0-0.5) K/uL Baso # (Auto) 0.03 (0-0.2) K/uL PT 10.1 (9.0-12.0) Seconds INR 1.0 (0.9-1.1) APTT 27.8 (21.0-31.0) Seconds PTT Ratio 1.1 Sodium 130 L (136-145) mmol/L Potassium 4.4 (3.5-5.1) mmol/L Chloride 94 L (98-107) mmol/L Carbon Dioxide 24 (21-32) mmol/L Anion Gap 11.0 (3-11) BUN 23 H (7-18) mg/dl Creatinine 1.16 (0.6-1.2) mg/dl Est Cr Clr Drug Dosing 49.5 ml/min Est GFR ( Amer) 58.0 Est GFR (Non-Af Amer) 50.1 BUN/Creatinine Ratio 19.9 (10-20) Glucose 131 H (70-99) mg/dl Estimat Average Glucose mg/dl Hemoglobin A1c (4.5-5.6) % Calcium 9.8 (8.5-10.1) mg/dl Albumin 4.2 (3.4-5.0) gm/dl Urine Color Urine Appearance (Clear) Urine pH (4.5-7.5) Ur Specific [place] (1.000-1.030) Urine Protein (Negative) Urine Glucose (UA) (Negative) Urine Ketones (Negative) Urine Blood (Negative) Urine Nitrite (Negative) Urine Bilirubin (Negative) Urine Urobilinogen (Negative) Ur Leukocyte Esterase (Negative) Blood Type Antibody Screen 09/20/18 09/20/18 09/20/18 Range/Units 12:15 12:15 12:15 WBC (4.8-10.8) K/uL RBC (4.2-5.4) M/uL Hgb (12.0-16.0) g/dL Hct (37-47) % MCV (80-100) fL MCH (25-34) pg MCHC (32-36) g/dL RDW Std Deviation (36.4-46.3) fL RDW Coeff of Rian (11.5-14.5) % Plt Count (130-400) K/uL MPV (7.4-10.4) fL Immature Gran % (Auto) % Neut % (Auto) % Lymph % (Auto) % [place] % (Auto) % Eos % (Auto) % Baso % (Auto) % Immature Gran # (Auto) (0.00-0.02) K/uL Neut # (Auto) (1.4-6.5) K/uL Lymph # (Auto) (1.2-3.4) K/uL [place] # (Auto) (0.11-0.59) K/uL Eos # (Auto) (0-0.5) K/uL Baso # (Auto) (0-0.2) K/uL PT (9.0-12.0) Seconds INR (0.9-1.1) APTT (21.0-31.0) Seconds PTT Ratio Sodium (136-145) mmol/L Potassium (3.5-5.1) mmol/L Chloride (98-107) mmol/L Carbon Dioxide (21-32) mmol/L Anion Gap (3-11) BUN (7-18) mg/dl Creatinine (0.6-1.2) mg/dl Est Cr Clr Drug Dosing ml/min Est GFR ( Amer) Est GFR (Non-Af Amer) BUN/Creatinine Ratio (10-20) Glucose (70-99) mg/dl Estimat Average Glucose 146 mg/dl Hemoglobin A1c 6.7 H (4.5-5.6) % Calcium (8.5-10.1) mg/dl Albumin (3.4-5.0) gm/dl Urine Color Yellow Urine Appearance Clear (Clear) Urine pH 5.5 (4.5-7.5) Ur Specific [place] 1.022 (1.000-1.030) Urine Protein Negative (Negative) Urine Glucose (UA) 3+ H (Negative) Urine Ketones Negative (Negative) Urine Blood Negative (Negative) Urine Nitrite Negative (Negative) Urine Bilirubin Negative (Negative) Urine Urobilinogen Negative (Negative) Ur Leukocyte Esterase Negative (Negative) Blood Type O Positive Antibody Screen NEGATIVE Diagnostic Findings Left knee radiographs: bone on bone medial compartment with periarticular osteophyte formation and subchondral sclerosis. Joint space narrowing and spurring patellofemoral joint.
--- NOTE | 2018-10-09 09:26 | History & Physical Report ---
Date of Service October 09, 2018 Assessment & Plan (1) Primary osteoarthritis of left knee: Patient is having significant left knee pain. Treatment options were discussed. She has failed conservative measures including cortisone injections, antiinflammatory medications, and viscosupplementation. She would like to proceed with surgical intervention. Risks, benefits and alternatives to surgery including but not limited to infection, DVT, pain, stiffness, need for revision surgery, damage to blood vessels, damage to nerves, PE, , were discussed with the patient and they wish to proceed. Plan will be for left total knee arthroplasty. DVT prophylaxis will be aspirin 81mg BID x 30 days. She plans on home health PT upon discharge from the hospital. We will plan on V-loc and prineo/dermabond for skin closure. She will follow up post operatively. History of Present Illness Primary Care Provider: Olena Loaiza 63 year old female who presents with left knee pain for several months to years. Past medical history significant for HTN, high cholesterol, hypothyroid, ART, DM2, GERD. She has failed conservative measures including cortisone injections, viscosupplementation, and anti-inflammtory medications. She would like to proceed with left total knee arthroplasty. Patient denies headaches, sweats, fevers, chills, double vision, blurred vision, cough, sore throat, dysphagia, chest pain, sob, wheezing, n/v/d/c, numbness, tingling, fatigue, urinary symptoms, mood disorders. ROS positive for left knee pain and stiffness. DOS is at [facility]. Allergies Allergy/AdvReac Type Severity Reaction Status Date / Time tizanidine Allergy Unknown PALPATATION Verified 09/14/18 14:27 S bromocriptine AdvReac Unknown NAUSEA AND Verified 09/14/18 14:27 VOMITING codeine AdvReac Unknown NAUSEA AND Verified 09/14/18 14:27 VOMITING Home Medications Home Medications Medication Instructions Recorded Confirmed Type Energy Pill 1 tab PO QAM 09/14/18 09/14/18 History aakxs-r-ndomyuhxmnlgz [Beano] 1 tab PO DAILY PRN 09/14/18 09/14/18 History amoxicillin 500 mg PO DIRECTED PRN 09/14/18 09/14/18 History aspirin [Aspirin Low Dose] 81 mg PO QAM 09/14/18 09/14/18 History atorvastatin 40 mg PO AC 09/14/18 09/14/18 History azelastine 1 spray INTRANASAL BID 09/14/18 09/14/18 History calcium carbonate-vitamin D3 1 tab PO BID 09/14/18 09/14/18 History [Calcium 600 + D(3)] gqmvjjk-slwfkytfz-hbpo 1 tab PO QAM 09/14/18 09/14/18 History canagliflozin [Invokana] 300 mg PO QAM 09/14/18 09/14/18 History cetirizine [Zyrtec] 10 mg PO QPM 09/14/18 09/14/18 History diltiazem HCl 120 mg PO DAILY 09/14/18 09/14/18 History esomeprazole magnesium 40 mg PO QAM 09/14/18 09/14/18 History ferrous sulfate 325 mg PO DAILY PRN 09/14/18 09/14/18 History fluticasone [Flonase Allergy 1 spray INTRANASAL BID 09/14/18 09/14/18 History Relief] folic acid 1 mg PO BID 09/14/18 09/14/18 History folic acid-vit B6-vit B12 [Folbic] 1 tab PO BID 09/14/18 09/14/18 History gabapentin 300 mg PO BID 09/14/18 09/14/18 History gabapentin 900 mg PO PM 09/14/18 09/14/18 History glipizide 5 mg PO BID 09/14/18 09/14/18 History glipizide 10 mg PO QAM 09/14/18 09/14/18 History levothyroxine 125 mcg PO QAM 09/14/18 09/14/18 History lisinopril-hydrochlorothiazide 1 tab PO QAM 09/14/18 09/14/18 History melatonin 5 mg PO HS 09/14/18 09/14/18 History metformin 1,000 mg PO BID 09/14/18 09/14/18 History methocarbamol 750 mg PO BID 09/14/18 09/14/18 History metoprolol tartrate 50 mg PO QAM 09/14/18 09/14/18 History multivitamin 1 tab PO QAM 09/14/18 09/14/18 History naproxen 500 mg PO BIDM 09/14/18 09/14/18 History olanzapine 5 mg PO QPM 09/14/18 09/14/18 History omega 5-zlj-hwx-fish oil [Fish Oil] 1 cap PO QAM 09/14/18 09/14/18 History promethazine 25 mg PO Q6H PRN 09/14/18 09/14/18 History Aspercreme Heat 09/20/18 History Icy Hot 09/20/18 History Tylenol 09/20/18 History Past Med/Surg History Medical History Anemia Diabetes mellitus, type 2 NIDDM GERD (gastroesophageal reflux disease) CONTROLLED Hyperlipidemia Hypertension Hypothyroidism Osteoarthritis Sleep apnea CPAP Surgical History History of X2 History of back surgery L4-S1 History of surgical removal of ganglion cyst RIGHT History of total right knee replacement Hx of dilation and curettage x2 Hx of hand surgery B/L TRIGGER FINGERS Hx of hysterectomy TOTAL Hx of wisdom tooth extraction Social History Current Living Situation: Spouse Other Information That Helps Us Care for You: No Feels Safe at Home: Yes Safety Concerns: Feels Safe At This Time Smoking Status: Never smoker Do You Dip or Chew Tobacco: No Hx Alcohol Use: No Hx Substance Use: No Beliefs That Will Affect Care: None Preferred Language: Macedonian Communication Ability: Effective Review of Systems All systems reviewed & are unremarkable except as noted in HPI & below Physical Exam Constitutional: well developed and well nourished; no acute distress Eyes: PERRL, conjunctivae normal, anicteric sclerae ENMT: external ear and nose normal, oropharynx normal Neck: trachea midline, no thyromegaly Respiratory: normal respiratory effort, lungs clear to auscultation Cardiovascular: RRR, no murmur, no edema Musculoskeletal: Left knee: ROM 0-130, moderate crepitus with ROM. Medial joint line tenderness, mild varus alignment. Stable to valgus and varus stress. Skin: no rashes, warm and dry Neurologic: patellar DTR's 2+ bilat, sensation intact Psychiatric: A+Ox3, euthymic affect Results & Data Laboratory Results Lab Results 09/20/18 09/20/18 09/20/18 Range/Units 12:15 12:15 12:15 WBC 8.00 (4.8-10.8) K/uL RBC 4.52 (4.2-5.4) M/uL Hgb 14.2 (12.0-16.0) g/dL Hct 42.2 (37-47) % MCV 93.4 (80-100) fL MCH 31.4 (25-34) pg MCHC 33.6 (32-36) g/dL RDW Std Deviation 46.8 H (36.4-46.3) fL RDW Coeff of Rian 13.7 (11.5-14.5) % Plt Count 310 (130-400) K/uL MPV 10.6 H (7.4-10.4) fL Immature Gran % (Auto) 0.3 % Neut % (Auto) 60.3 % Lymph % (Auto) 28.4 % Tyler % (Auto) 8.0 % Eos % (Auto) 2.6 % Baso % (Auto) 0.4 % Immature Gran # (Auto) 0.02 (0.00-0.02) K/uL Neut # (Auto) 4.83 (1.4-6.5) K/uL Lymph # (Auto) 2.27 (1.2-3.4) K/uL Tyler # (Auto) 0.64 H (0.11-0.59) K/uL Eos # (Auto) 0.21 (0-0.5) K/uL Baso # (Auto) 0.03 (0-0.2) K/uL PT 10.1 (9.0-12.0) Seconds INR 1.0 (0.9-1.1) APTT 27.8 (21.0-31.0) Seconds PTT Ratio 1.1 Sodium 130 L (136-145) mmol/L Potassium 4.4 (3.5-5.1) mmol/L Chloride 94 L (98-107) mmol/L Carbon Dioxide 24 (21-32) mmol/L Anion Gap 11.0 (3-11) BUN 23 H (7-18) mg/dl Creatinine 1.16 (0.6-1.2) mg/dl Est Cr Clr Drug Dosing 49.5 ml/min Est GFR ( Amer) 58.0 Est GFR (Non-Af Amer) 50.1 BUN/Creatinine Ratio 19.9 (10-20) Glucose 131 H (70-99) mg/dl Estimat Average Glucose mg/dl Hemoglobin A1c (4.5-5.6) % Calcium 9.8 (8.5-10.1) mg/dl Albumin 4.2 (3.4-5.0) gm/dl Urine Color Urine Appearance (Clear) Urine pH (4.5-7.5) Ur Specific [place] (1.000-1.030) Urine Protein (Negative) Urine Glucose (UA) (Negative) Urine Ketones (Negative) Urine Blood (Negative) Urine Nitrite (Negative) Urine Bilirubin (Negative) Urine Urobilinogen (Negative) Ur Leukocyte Esterase (Negative) Blood Type Antibody Screen 09/20/18 09/20/18 09/20/18 Range/Units 12:15 12:15 12:15 WBC (4.8-10.8) K/uL RBC (4.2-5.4) M/uL Hgb (12.0-16.0) g/dL Hct (37-47) % MCV (80-100) fL MCH (25-34) pg MCHC (32-36) g/dL RDW Std Deviation (36.4-46.3) fL RDW Coeff of Rian (11.5-14.5) % Plt Count (130-400) K/uL MPV (7.4-10.4) fL Immature Gran % (Auto) % Neut % (Auto) % Lymph % (Auto) % Tyler % (Auto) % Eos % (Auto) % Baso % (Auto) % Immature Gran # (Auto) (0.00-0.02) K/uL Neut # (Auto) (1.4-6.5) K/uL Lymph # (Auto) (1.2-3.4) K/uL Tyler # (Auto) (0.11-0.59) K/uL Eos # (Auto) (0-0.5) K/uL Baso # (Auto) (0-0.2) K/uL PT (9.0-12.0) Seconds INR (0.9-1.1) APTT (21.0-31.0) Seconds PTT Ratio Sodium (136-145) mmol/L Potassium (3.5-5.1) mmol/L Chloride (98-107) mmol/L Carbon Dioxide (21-32) mmol/L Anion Gap (3-11) BUN (7-18) mg/dl Creatinine (0.6-1.2) mg/dl Est Cr Clr Drug Dosing ml/min Est GFR ( Amer) Est GFR (Non-Af Amer) BUN/Creatinine Ratio (10-20) Glucose (70-99) mg/dl Estimat Average Glucose 146 mg/dl Hemoglobin A1c 6.7 H (4.5-5.6) % Calcium (8.5-10.1) mg/dl Albumin (3.4-5.0) gm/dl Urine Color Yellow Urine Appearance Clear (Clear) Urine pH 5.5 (4.5-7.5) Ur Specific [place] 1.022 (1.000-1.030) Urine Protein Negative (Negative) Urine Glucose (UA) 3+ H (Negative) Urine Ketones Negative (Negative) Urine Blood Negative (Negative) Urine Nitrite Negative (Negative) Urine Bilirubin Negative (Negative) Urine Urobilinogen Negative (Negative) Ur Leukocyte Esterase Negative (Negative) Blood Type O Positive Antibody Screen NEGATIVE Diagnostic Findings Left knee radiographs: bone on bone medial compartment with periarticular osteophyte formation and subchondral sclerosis. Joint space narrowing and spurring patellofemoral joint.
[~2018-10-26 08:06] MED LIST changes: -ACET-1256 PO; -ASPI81TA28 PO; -ATEN100T PO; +BUPIVACAINE 0.5 % 5 MG/1 ML PF 10ML VIAL ONE; -CANA1TAB3 PO; -CEFAZOLIN 2000 MG/60 ML D5W 60 ML IV SCH; +CEFAZOLIN 2000MG 2,000 MG/15 ML SYR IV SCH; -CLOTLOT2 TOP; -DILT120T8 PO; -FERR325T5 PO; -FLUT0.15 INH; -FOLITAB21 PO; -GABA300C19 PO; -GABAPENTIN 300 MG CAP PO SCH; +GABAPENTIN 300 MG x 2 PO SCH; -GLIP-199 PO; -LACTATED RINGER'S 1000ML 1,000 ML IV SCH; -LACTATED RINGER'S 1000ML 500 ML IV ONE; -LACTATED RINGER'S 1000ML IV SCH; -LEVO150T PO; -LPT/40 PO; +LR 500ML BOLUS, THEN 15ML/HR IV SCH; -LSN/2025 PO; -MAGN1CAP4 PO; -MELATAB2 PO; -MENT7.5M; -METF1000 PO; -METH500T37 PO; -METOCLOPRAMIDE HCL 10 MG TAB PO SCH; -MULT-506 PO; -NAPR-1169 PO; -NXM/40 PO; -OLAN1TAB9 PO; -OXYCODONE HCL 10 MG TABCR (OXYCONTIN) PO SCH; -POLYMYXIN B SULFATE 100,000 UNITS in NSS 100ML IR SCH; +ROPIVACAINE 0.5% 5 MG/ML 30 ML VIAL ONE; +ROPIVACAINE 0.5% HCL/PF 150 MG, BUPIVACAINE 0.5% MPF 30 ML, EPINEPHrine 30MG/30ML (OR U... INFIL SCH; -ROPIVACAINE 5MG/ML 30 ML 150 MG, BUPIVACAINE/EPINEPHR 0.5% MPF 30 ML, KETOROLAC TROMETH... INFIL SCH; -TRANEXAMIC ACID INJ 1,000 MG in SODIUM CHLORIDE 0.9% 100ML 100 ML IV SCH; -VANCOMYCIN INJ 400 MG in NSS 100ML IR SCH; +dexAMETHasone 4 MG TAB PO SCH
[2018-10-26] MEDS ORDERED: fentaNYL citrate 100 MCG/2 ML VIAL ONE (08:19)
[2018-10-26] MEDS ORDERED: MIDAZOLAM HCL 1 MG/ML 2ML VIAL ONE (08:19)
--- NOTE | 2018-10-26 09:04 | History & Physical Bridge Note ---
Date of Service October 26, 2018 History & Physical Bridge Note I have examined the patient, reviewed the History & Physical and in the interval since the performance of the History & Physical I have noted the following changes of clinical significance: no changes noted
[2018-10-26] MEDS ORDERED: PROMETHAZINE HCL 12.5 MG in SODIUM CHLORIDE 0.9% 50 ML IV PRN (09:09)
[2018-10-26] MEDS ORDERED: fentaNYL citrate 100 MCG/2 ML VIAL IV PRN (09:09)
[2018-10-26] MEDS ORDERED: HYDROmorphone INJ 1 MG/ML SYRINGE IV PRN (09:09)
[2018-10-26] MEDS ORDERED: ATROPINE SULFATE 0.1 MG/ML 10ML SYR IV PRN (09:09)
[2018-10-26] MEDS ORDERED: PHENYLEPHRINE 100MCG/ML 5ML SYR IV PRN (09:09)
[2018-10-26] MEDS ORDERED: ONDANSETRON INJ 2 MG/ML 2 ML VIAL IV PRN ×2 (09:09→12:51)
[2018-10-26] MEDS ORDERED: ePHEDrine sulfate 50 MG/ML AMP IV PRN (09:09)
[2018-10-26] MEDS ORDERED: BACITRACIN INJ 50,000 UNIT VIAL ONE (09:55)
[2018-10-26] MEDS ORDERED: ORTHO JOINT ANESTHETIC ONE (09:55)
[2018-10-26] MEDS ORDERED: POVIDONE-IODINE OP SOLN 30 ML BTL ONE (09:55)
[2018-10-26] MEDS ORDERED: TRANEXAMIC ACID 1,000 MG in 0.9 % SODIUM CHLORIDE 100 ML IV SCH ×2 (10:30→10:35)
[2018-10-26] MEDS ORDERED: PROPOFOL IV EMULSION 10 MG/ML 20 ML VIAL IV ONE ×2 (11:09→11:37)
[2018-10-26] MEDS ORDERED: ePHEDrine sulfate 50 MG/ML SYR ONE (11:09)
[2018-10-26] MEDS ORDERED: LIDOCAINE HCL 2% 2 ML VIAL/AMP(20MG/ML) INFIL ONE (11:09)
--- NOTE | 2018-10-26 12:03 | Operative Report ---
Post Operative Report Pre & Post Diagnosis Operation Date: 10/26/18 11:00 Pre-Op Diagnosis: LEFT KNEE OSTEOARTHRITIS Post-Op Diagnosis: LEFT KNEE OSTEOARTHRITIS Procedure Operation Date: 10/26/18 11:00 Actual Procedures p Left Total Knee Arthroplasty(Left) - Fidel Garza MD Surgeon Fidel Garza MD Inspector Aligning Nelson Luis PA-C Estimated Blood Loss 20 Findings Consistent with Post-Op Diagnosis Specimens Bone and tissue Drains 2 Hemovac Anesthesia Type Spinal MAC Complications none Disposition Disposition: Recovery Room Indications The patient is a 63-year-old female long-standing arthritic change of the left knee. She is urgb-ca-icjl in the medial compartment. She is failed conservative measures including injection, anti-inflammatories, rehab. She wishes to proceed with a left total knee arthroplasty. Description of Procedure Risks benefits and alternatives of surgery including but not limited to infection, DVT, pain, stiffness, need for surgery, damage to blood vessels, damage to nerves or risks of anesthesia were discussed with the patient and they wished to proceed. The patient was identified and the laterality was confirmed and marked. They received a preoperative antibiotic as well as a spinal anesthetic and an abductor canal block. A well-padded tourniquet was applied and then the limb was prepped and draped in standard manner with ChloraPrep. The limb was exsanguinated and the tourniquet was inflated. I made a standard anterior incision. I sharply incised the skin then utilized Bovie electrocautery to achieve hemostasis. I made a medial parapatellar arthrotomy and mobilized the patella laterally. I then excised the anterior horns of the medial and lateral meniscus as well as the infrapatellar fat pad. I elevated a portion of the MCL off of the tibia. I then pinned into place a patient-matched distal femoral cutting guide and made my distal femoral resection. I then pinned into place the 5 in 1 femoral cutting guide. I made my anterior, posterior and chamfer cuts. I then excised the cruciates and the remaining portions of the menisci. I then pinned into place a patient- matched tibial cutting guide and made my tibial resection. I then pinned into place the tibial plate a utilizing alignment john to confirm rotation. I then cut for the post. Utilizing a lamina pipe maker and I then removed posterior osteophytes off the femur. I then placed a trial femur into position and cut for the trochlear component. I then sequentially trialed to size the polyethylene until there was good soft tissue balancing and range of motion. I then prepared the patella with a freehand cut utilizing sagittal saw. I sized and drilled for the patella. There was some lateral tracking to the patella. A lateral release was required. After this was performed she had good tracking of the patella with a no touch technique. All the trial components were removed. The deep tissues were anesthetized with an ortho mix solution. Then with Simplex HV with gentamicin cement, I cemented my definitive components. Definitive components, [place] 2: Femur 4 Tibia 2 Poly 9 Patella 29 oval A betadine soak was performed. A deep drain was placed. The arthrotomy was closed with interrupted #1 Vicryl suture subcutaneous tissue was closed with interrupted 2-0 Vicryl suture. The skin was closed with with vitaliy. An Acticoat and Ibrahima dressing were placed. Sterile dressings were applied. All needle and sponge counts were correct at the end of the procedure patient was transferred to the PACU in stable condition without apparent complication. The PA-C was necessary for assistance with procedure for assistance in positioning, prepping, draping, retraction and closure. I attest to the content of the Intraoperative Record and any orders documented therein. Any exceptions are noted below.
[2018-10-26] MEDS ORDERED: METOCLOPRAMIDE HCL INJ 5 MG/ML 2 ML VIAL IV PRN (12:51)
[2018-10-26] MEDS ORDERED: MAGNESIUM HYDROXIDE SUSP 30 ML UDC PO PRN (12:51)
[2018-10-26] MEDS ORDERED: BISACODYL 10 MG SUPP PR PRN (12:51)
[2018-10-26] MEDS ORDERED: NALOXONE HCL 0.4 MG/1 ML VIAL/CARP IV PRN (12:51)
[2018-10-26] MEDS ORDERED: MoRPHine SULFATE 4 MG/ML 1 ML CARP\\VIAL IV PRN (12:51)
[2018-10-26] MEDS ORDERED: SODIUM CHLORIDE 0.9% 1000ML 1,000 ML IV SCH (13:00)
--- NOTE | 2018-10-26 13:17 | XRay Report ---
XR knee LT 2V routine HISTORY: 63 years-old Female Surgical Post Op left knee total arthroplasty. History of degenerative joint disease. COMPARISON: None available TECHNIQUE: 2 views of the left knee FINDINGS: Left knee total joint arthroplasty with patellar resurfacing. Alignment is satisfactory without acute fracture or retained foreign body. Expected postsurgical soft tissue swelling and deep tissue air wi th surgical drainage catheter. IMPRESSION: Left knee total joint arthroplasty and patella resurfacing with satisfactory alignment. The above report was generated using voice recognition software. It may contain grammatical, syntax o r spelling errors. Electronically signed by: José Meyer M.D. 10/26/2018 1:16 PM
--- NOTE | 2018-10-26 13:54 | Anesthesiology Progress Note ---
Date of Service October 26, 2018 Anesthesia Post Procedure Vital Signs Vital Signs: Temp Pulse Pulse Resp BP Pulse Ox 10/26/18 13:15 37.8 C H 72 16 140/73 100 10/26/18 13:05 75 20 120/90 100 10/26/18 12:55 74 22 140/75 100 10/26/18 12:48 37.9 C H 87 14 131/71 98 10/26/18 08:46 36.8 C 62 22 148/90 H 98 Notes Mental Status: alert / awake / arousable Patient Amnestic to Procedure: Yes Nausea / Vomiting: adequately controlled Pain: adequately controlled Airway Patency, RR, SpO2: stable & adequate BP & HR: stable & adequate Neuraxial Anesthesia: was administered and sensory block is resolving Anesthetic Complications: no major complications apparent
--- NOTE | 2018-10-26 13:58 | Consultation ---
Date of Consultation October 26, 2018 Assessment & Plan (1) Primary osteoarthritis of left knee: - S/P left TKA on 10/26/[address] Garza - Pain management, bowel regimen and DVT ppx per primary team - PT/OT rehanals -Continue ASA 81 mg twice daily (2) Hypertension: - Continue diltiazem 120 mg daily, lisinopril/HCTZ 20/25 mg daily, metoprolol tartrate 50 mg p.o. daily, (3) Hyperlipidemia: -Continue atorvastatin 40 mg (4) ART on CPAP: - Continue on CPAP at HS, pts will bring in the machine from home. (5) DM type 2 (diabetes mellitus, type 2): - ISS with Accu-Cheks ACHS - AC1= 6.7 in Aug - Continue Invokana 300 mg QAM - Holding metformin bid, resume upon discharge. (6) Obesity (BMI 30.0-34.9): - Diet and exercise encouraged, continue heart healthy diet/diabetic diet (7) Anemia: - History of such, hemoglobin and hematocrit are stable. Follow with a.m. labs (8) DVT prophylaxis: - Continue ASA 81 mg twice daily Thank you for involving medicine in the care of Mrs. Cazares, please do not hesitate to call with questions or concerns, at this time we will sign off. Supervising Physician Co-Signing Physician Notes Patient seen and examined, chart reviewed, case discussed with CRYSTAL Muñoz and I agree with her assessment and plan as documented above. Briefly, patient is a 63yo femaale with history of DM, HTN, HLP, ART s/p left TKA performed today. Procedure was well tolerated. Patient with minimal pain at present. She ate dinner without difficulty. +UOP, +flatus, no BM as of yet. Ambulating with a walker. On physical exam she is afebrile, HD stable NAD Dressing c/d/i MMM, neck supple, no JVD Heart +S1/S2, regular, no m/r/g Lungs CTA Abd +BS, soft, NT/ND Ext - sensation and mobility intact, 2+ pulses Labs and images reviewed Assessment/Plan: Continue home medication for BP, lipid control, CPAP for ART. ISS. Remainder of plan as above History of Present Illness Reason for Consultation: Medical management Requesting Physician: Dr. Garza Attending Physician: Fidel Garza MD History of Present Illness This is a 63 yo F with PMHx of HTN, HLD, DM II, GERD, Anemia, Hypothyroidism, osteoarthritis, ART on CPAP, obesity, who presents for an elective left total knee arthroplasty by Dr. Garza on 10/26/18. The patient is doing well, she does not yet have feeling in her left foot but is able to move her toes. She has not yet moved her bowel, urinated or passed flatus. Pt plans to do home health therapy at home and then continue with [facility]. Pt is eating lunch at bedside and doing well. Allergies Allergy/AdvReac Type Severity Reaction Status Date / Time tizanidine Allergy Unknown PALPATATION Verified 10/26/18 08:35 S bromocriptine AdvReac Unknown NAUSEA AND Verified 10/26/18 08:35 VOMITING codeine AdvReac Unknown NAUSEA AND Verified 10/26/18 08:35 VOMITING Home Medications Home Medications Medication Instructions Recorded Confirmed Type amoxicillin 500 mg PO DIRECTED PRN 09/14/18 09/14/18 History aspirin [Aspirin Low Dose] 81 mg PO QAM 09/14/18 10/26/18 History atorvastatin 40 mg PO AC 09/14/18 10/26/18 History azelastine 1 spray INTRANASAL BID 09/14/18 10/26/18 History calcium carbonate-vitamin D3 1 tab PO BID 09/14/18 10/26/18 History [Calcium 600 + D(3)] zupsyyz-hykfhdyxg-yuqn 1 tab PO QAM 09/14/18 10/26/18 History canagliflozin [Invokana] 300 mg PO QAM 09/14/18 10/26/18 History cetirizine [Zyrtec] 10 mg PO QPM 09/14/18 10/26/18 History diltiazem HCl 120 mg PO DAILY 09/14/18 10/26/18 History fluticasone [Flonase Allergy 1 spray INTRANASAL BID 09/14/18 10/26/18 History Relief] folic acid-vit B6-vit B12 [Folbic] 1 tab PO BID 09/14/18 10/26/18 History gabapentin 300 mg PO BID 09/14/18 10/26/18 History gabapentin 900 mg PO PM 09/14/18 10/26/18 History glipizide 10 mg PO QAM 09/14/18 10/26/18 History levothyroxine 125 mcg PO QAM 09/14/18 10/26/18 History lisinopril-hydrochlorothiazide 1 tab PO QAM 09/14/18 10/26/18 History melatonin 5 mg PO HS 09/14/18 10/26/18 History metformin 1,000 mg PO BID 09/14/18 10/26/18 History methocarbamol 750 mg PO BID 09/14/18 10/26/18 History metoprolol tartrate 50 mg PO QAM 09/14/18 10/26/18 History multivitamin 1 tab PO QAM 09/14/18 10/26/18 History naproxen 500 mg PO BIDM 09/14/18 10/26/18 History olanzapine 5 mg PO QPM 09/14/18 10/26/18 History omega 1-sak-hsv-fish oil [Fish Oil] 1 cap PO QAM 09/14/18 10/26/18 History promethazine 25 mg PO Q6H PRN 09/14/18 10/26/18 History Aspercreme Heat 09/20/18 History Icy Hot 09/20/18 History Tylenol 2 tab PO Q4 PRN 09/20/18 10/26/18 History ranitidine HCl 150 mg PO HS 10/16/18 10/26/18 History Patient History Medical History Cyst of kidney, acquired (Acute) Hyponatremia (Acute) Protein in urine (Acute) Anemia Diabetes mellitus, type 2 NIDDM GERD (gastroesophageal reflux disease) CONTROLLED Hyperlipidemia Hypertension Hypothyroidism Osteoarthritis Sleep apnea CPAP Surgical History History of X2 History of back surgery L4-S1 History of surgical removal of ganglion cyst RIGHT History of total right knee replacement Hx of dilation and curettage x2 Hx of hand surgery B/L TRIGGER FINGERS Hx of hysterectomy TOTAL Hx of wisdom tooth extraction Social History Preferred Language: Bahamian Communication Ability: Effective Beliefs That Will Affect Care: None Current Living Situation: Spouse Other Information That Helps Us Care for You: No Feels Safe at Home: Yes Safety Concerns: Feels Safe At This Time Smoking Status: Never smoker Hx Alcohol Use: No Hx Substance Use: No Review of Systems Constitutional: no fever, no chills, no sweats and no fatigue Eyes: no diplopia and no worsening vision Ear, Nose, Mouth, Throat: no dizziness, no nasal discharge, no facial pain and no sore throat Respiratory: no cough, no dyspnea and no wheezing Cardiovascular: no chest pain, no palpitations, no lightheadedness and no syncope Gastrointestinal: no nausea, no vomiting and no constipation Genitourinary (Female): no dysuria, no urinary frequency and no urinary incontinence Musculoskeletal: as per Subjective / HPI Integumentary: no rash, no lesions and no wounds Neurologic: no gait abnormality, no falls, no numbness, no dizziness and no syncope Psychiatric: no depression and no anxiety Endocrine: no fatigue Physical Exam Vital Signs (Past 24 Hours): Last Vital Signs Temp 37.8 C H 10/26/18 13:15 Pulse 72 10/26/18 13:15 Resp 16 10/26/18 13:15 BP 140/73 10/26/18 13:15 Pulse Ox 100 10/26/18 13:15 Physical Exam: General: awake, alert, no apparent distress, obese Head: Normocephalic, atraumatic ENT: PERRL, EOMI, no pharyngeal exudate, mucous membranes moist Chest: Clear to auscultation, on room air, no adventitious breath sounds Cardiac: Regular rate and rhythm, no murmur, no JVD, normal peripheral pulses, good capillary refill Abdominal: NABS x 4 quadrants, soft, nontender to palpation, no rebound, guarding or tenderness Extremities: +LLE with ERIN on, bandage is c/d/i, hemovac drain and ice pack in place, otherwise normal inspection, no peripheral edema or erythema, calfs nontender to palpation Psych: Normal mood and affect Neuro: AAO x 3, no motor deficits, speech is clear,+ LLE peripheral sensory deficits below the knee, sensation intact in thighs bilaterally, pt is able to wiggle toes.
--- NOTE | 2018-10-26 14:13 | Pharmacy Report ---
Glycemic Control Consultation - Date of Service October 26, 2018 - Scope Scope: Glycemic Pharmacist consulted by Dr Luis on 10-26 for glycemic control and to write orders per [facility] inpatient glycemic control protocol - Objective Weight: 80.484 kg Accuchecks BSG (last 24hrs): 10/26/18 10/26/18 08:34 12:52 POC Glucose 126 H 122 H HbA1c: Hemoglobin A1c 6.7 % (4.5-5.6) H 09/20/18 12:15 - Recent Pertinent Medications Outpatient Anti-diabetic Regimen: * Invokana 300 mg Qam, glipizide 10 mg Qam, metformin 1 gm BID * A1c = 6.7 % 09/20/18 Risk Factors for Insulin Resistance: * Steroids: ortho, dexamethasone po 8 mg x 1 * Recent Surgery: POD 0 * Diet: T2DM - Assessment & Plan Assessment & Plan: ASSESSMENT: * Patient is a 63 year old female now s/p L knee arthroplasty. PMH significant for htn, hld, anemia, and osteoarthritis. * Type 2 diabetic managed only on oral agents at home. A1C indicates good glycemic control ~ 6.7% * Patient received steroids preop procedure therefore anticipate steroid induced hyperglycemia - will utilize basal/bolus dosing for postop procedure PLAN FOR INPATIENT GLYCEMIC CONTROL: * Pt is maintained on oral antidiabetic agents as an outpatient * Oral agents are not recommended for inpatient use d/t drug interactions, changing PO intake, and difficulty titrating for acute hyper/hypoglycemia. ADA recommends re-initiating outpatient oral agents 1-2 days prior to discharge if/when appropriate if they were held on admission. * Will hold oral agents for admission and utilize SQ basal bolus insulin regimen which is the recommended regimen for inpatient glycemic control. * Will initiate weight based insulin dosing for insulin na�ve patient and titrate based on BSG trends. * Basal insulin * Lantus 15 units x 1 (~0.2 units/kg) * Bolus insulin - will add an overnight check * NovoLog per scale ACHS or Q6hrs while NPO * Goal Range: Low 110 mg/dL - High 140 mg/dL * Correction Factor: 20 mg/dL/unit * Nutritional / Prandial insulin per carb ratio of 1 unit per 7 grams CHO consumed * Please note that the plan above was derived based on current level of insulin resistance and hospital stress. These recommendations are appropriate for inpatient admission only. Plan of care upon discharge will need to be reassessed to avoid potential outpatient hypo/hyperglycemia. Thank you.
[2018-10-26] MEDS ORDERED: PHARMACY GLYCEMIC MGMT CONSULT PRN (14:20)
[2018-10-26] MEDS ORDERED: LANTUS PER UNIT CHARGE SQ ONE (14:30)
[2018-10-26] MEDS: dilTIAZem HCL 120 MG CAPCR PO SCH (14:30)
[2018-10-26] MEDS: GABAPENTIN 300 MG CAP PO SCH (14:31)
[2018-10-26] MEDS ORDERED: CARBOHYDRATES FOR HYPOGLYCEMIA PO PRN (14:45)
[2018-10-26] MEDS ORDERED: GLUCAGON FOR INJ 1 MG VIAL IM PRN (14:45)
[2018-10-26] MEDS ORDERED: GLUCOSE 10 TABS/TUBE PO PRN (14:45)
[2018-10-26] MEDS ORDERED: DEXTROSE 50% 50 ML SYRINGE IV PRN (14:45)
[2018-10-26] MEDS ORDERED: GLUCOSE 40% GEL 15 GM TUBE PO PRN (14:45)
[2018-10-26] MEDS ORDERED: ATORVASTATIN 40 MG TAB PO SCH (15:30)
[2018-10-26] MEDS: INSULIN ASPART 100 UNITS/ML 3 ML PEN SC SCH ×2 (18:25→21:03)
[2018-10-26] MEDS: ACETAMINOPHEN 500 MG TAB PO SCH (18:26)
[2018-10-26] MEDS: CEFAZOLIN 2000MG 2,000 MG/15 ML SYR IV SCH (18:27)
[2018-10-26] MEDS: OXYCODONE HCL IR 5 MG TAB (IMMEDIATE RELEASE) PO PRN ×2 (19:02→22:42)
[2018-10-26] MEDS ORDERED: OLANZapine 5 MG TABLET PO SCH (21:00)
[2018-10-26] MEDS ORDERED: GABAPENTIN 300 MG CAP PO SCH (21:00)
[2018-10-26] MEDS ORDERED: CETIRIZINE HCL 10 MG TABLET PO SCH (21:00)
[2018-10-26] MEDS ORDERED: SENNA 8.6 MG TAB PO SCH (21:00)
[2018-10-26] MEDS ORDERED: NON-FORMULARY MEDICATION (Melatonin 5 MG) PO SCH (21:00)
[2018-10-26] MEDS: CeleBREX 200 MG CAP PO SCH (21:01)
[2018-10-26] MEDS: METHOCARBAMOL 750 MG TABLET PO SCH (21:01)
[2018-10-26] MEDS: DOCUSATE SODIUM 100 MG CAP PO SCH (21:01)
[2018-10-26] MEDS: CALCIUM 600MG + VIT D 400 IU TAB PO SCH (21:02)
[2018-10-26] MEDS: ASPIRIN 81 MG ECTAB PO SCH (21:02)
[2018-10-26] MEDS: FLUTICASONE PROPIONATE NA SPR 16 GM BTL SCH (21:03)
[2018-10-27] MEDS ORDERED: INSULIN ASPART 100 UNITS/ML 3 ML PEN SC SCH
[2018-10-27] MEDS: CEFAZOLIN 2000MG 2,000 MG/15 ML SYR IV SCH (01:55)
[2018-10-27] MEDS: ACETAMINOPHEN 500 MG TAB PO SCH ×2 (05:21→14:26)
[2018-10-27] MEDS: OXYCODONE HCL IR 5 MG TAB (IMMEDIATE RELEASE) PO PRN ×3 (05:21→15:36)
[2018-10-27 05:48] LABS: Hemoglobin 12.9 g/dL (12.0-16.0); Mean Corpuscular Hgb Conc 33.9 g/dL (32-36); Mean Corpuscular Volume 91.8 fL (80-100); Platelet Count 299 K/uL (130-400); RDW Standard Deviation 43.8 fL (36.4-46.3); Red Blood Count 4.14 M/uL (4.2-5.4); White Blood Count 12.46 K/uL (4.8-10.8)
[2018-10-27 06:09] LABS: BUN Creatinine Ratio 22.4 (10-20); Calcium 8.9 mg/dl (8.5-10.1); Creatinine Clr Calc Pharmacy 40.7 ml/min; Est GFR (African American) 47.9; Est GFR (Non-African American) 41.3
[2018-10-27] MEDS ORDERED: LEVOTHYROXINE SODIUM 125 MCG TABLET PO SCH (06:30)
--- NOTE | 2018-10-27 07:31 | Orthopedic Progress Note ---
Date of Service October 27, 2018 Assessment & Plan (1) S/P total knee arthroplasty: POD#1 Left TKA -Pain management -DVT prophylaxis-ASA -PT/OT -D/C planning-discharge later today if PT goes well and as long as okay with medicine. Subjective Patient doing well this AM, mild pain. Denies any other complaints. No chest pain, sob, dizziness, n/v/d. Creatine mildly elevated from baseline. States she has had some protienuria and has referral to balance wheel hand filer as an outpatient. Physical Exam Vital Signs (Past 24 Hours): Last Vital Signs Temp 36.9 C 10/27/18 04:06 Pulse 66 10/27/18 04:06 Resp 15 10/27/18 04:06 BP 127/68 10/27/18 04:06 Pulse Ox 93 10/27/18 04:06 Physical Exam: Dressing c/d/i, JUSTICE and hemovac in place. No calf tenderness. N/V status and sensation intact.
--- NOTE | 2018-10-27 08:21 | Anesthesiology Progress Note ---
Date of Service October 27, 2018 Anesthesia Post Procedure Vital Signs Vital Signs: Temp Pulse Pulse Pulse Pulse Resp BP 10/27/18 07:10 36.3 C L 78 16 127/69 10/27/18 04:06 36.9 C 66 15 127/68 10/26/18 23:25 36.8 C 68 18 145/71 H 10/26/18 19:55 36.7 C 71 17 117/60 10/26/18 16:28 72 17 154/85 H 10/26/18 15:36 36.7 C 72 17 145/76 H 10/26/18 14:36 83 16 154/78 H 10/26/18 14:00 63 16 134/78 10/26/18 13:30 36.8 C 70 18 145/85 H 10/26/18 13:15 37.8 C H 72 16 140/73 10/26/18 13:05 75 20 120/90 10/26/18 12:55 74 22 140/75 10/26/18 12:48 37.9 C H 87 14 131/71 10/26/18 08:46 36.8 C 62 22 148/90 H Pulse Ox 10/27/18 07:10 96 10/27/18 04:06 93 10/26/18 23:25 93 10/26/18 19:55 96 10/26/18 16:28 94 10/26/18 15:36 94 10/26/18 14:36 96 10/26/18 14:00 97 10/26/18 13:30 93 10/26/18 13:15 100 10/26/18 13:05 100 10/26/18 12:55 100 10/26/18 12:48 98 10/26/18 08:46 98 Pain Intensity Left Knee: Pain Intensity: 4 Notes Mental Status: alert / awake / arousable Patient Amnestic to Procedure: Yes Nausea / Vomiting: adequately controlled Pain: adequately controlled Airway Patency, RR, SpO2: stable & adequate BP & HR: stable & adequate Hydration State: stable & adequate Neuraxial Anesthesia: was administered and sensory block resolved Anesthetic Complications: no major complications apparent and Pt Satisfied with anesthetic care
[2018-10-27] MEDS: FLUTICASONE PROPIONATE NA SPR 16 GM BTL SCH (08:38)
[2018-10-27] MEDS: DOCUSATE SODIUM 100 MG CAP PO SCH (08:39)
[2018-10-27] MEDS: METHOCARBAMOL 750 MG TABLET PO SCH (08:39)
[2018-10-27] MEDS: CeleBREX 200 MG CAP PO SCH ×2 (08:39→08:41)
[2018-10-27] MEDS: ASPIRIN 81 MG ECTAB PO SCH (08:39)
[2018-10-27] MEDS: CALCIUM 600MG + VIT D 400 IU TAB PO SCH (08:39)
[2018-10-27] MEDS: INSULIN ASPART 100 UNITS/ML 3 ML PEN SC SCH ×2 (08:43→13:00)
[2018-10-27] MEDS ORDERED: METOPROLOL TARTRATE 50 MG TAB PO SCH (09:00)
[2018-10-27] MEDS ORDERED: LISINOPRIL/HCTZ 20/25MG 1 TAB PO SCH (09:00)
[2018-10-27] MEDS ORDERED: LANTUS PER UNIT CHARGE SQ ONE (09:00)
[2018-10-27] MEDS ORDERED: MULTIVITAMIN TAB PO SCH ×2 (09:00)
[2018-10-27] MEDS ORDERED: NON-FORMULARY MEDICATION (Calcium-Magnesium-Zinc 1 TAB) PO SCH (09:00)
[2018-10-27] MEDS ORDERED: VITAMIN B COMPLEX TAB PO SCH (09:00)
[2018-10-27] MEDS: GABAPENTIN 300 MG CAP PO SCH ×2 (09:40→15:36)
--- NOTE | 2018-10-27 14:14 | Hospitalist Progress Note ---
Date of Service October 27, 2018 Assessment & Plan (1) Primary osteoarthritis of left knee: - S/P left TKA on 10/26/[address] Garza - Pain management, bowel regimen and DVT ppx per primary team - PT/OT cheryl -Continue ASA 81 mg twice daily -plan for discharge home. Elevated creatinine: Likely prerenal from surgery. Will recommend to recheck BMP as an outpatient. Patient does not reuqire to stay another hospital day to recheck blood work. (2) Hypertension: - Continue diltiazem 120 mg daily, lisinopril/HCTZ 20/25 mg daily, metoprolol tartrate 50 mg p.o. daily, (3) Hyperlipidemia: -Continue atorvastatin 40 mg (4) ART on CPAP: - Continue on CPAP at HS, pts will bring in the machine from home. (5) DM type 2 (diabetes mellitus, type 2): - ISS with Accu-Cheks ACHS - AC1= 6.7 in Aug - Continue Invokana 300 mg QAM - Holding metformin bid, resume upon discharge. (6) Obesity (BMI 30.0-34.9): - Diet and exercise encouraged, continue heart healthy diet/diabetic diet (7) Anemia: - History of such, hemoglobin and hematocrit are stable. Follow with a.m. labs (8) DVT prophylaxis: - Continue ASA 81 mg twice daily Subjective Was called due to elevated creatinine.. Patient reports doing well. Patient has no new complaints. Musculoskeletal: as per Subjective / HPI Physical Exam Vital Signs (Past 24 Hours): Last Vital Signs Temp 36.6 C 10/27/18 11:05 Pulse 73 10/27/18 11:05 Resp 16 10/27/18 11:05 BP 123/71 10/27/18 11:05 Pulse Ox 95 10/27/18 11:05 Physical Exam: General: awake, alert, no apparent distress, obese Head: Normocephalic, atraumatic ENT: PERRL, EOMI, no pharyngeal exudate, mucous membranes moist Chest: Clear to auscultation, on room air, no adventitious breath sounds Cardiac: Regular rate and rhythm, no murmur, no JVD, normal peripheral pulses, good capillary refill Abdominal: NABS x 4 quadrants, soft, nontender to palpation, no rebound, guarding or tenderness Extremities: +LLE with ERIN on, bandage is c/d/i, hemovac drain and ice pack in place, otherwise normal inspection, no peripheral edema or erythema, calfs nontender to palpation Psych: Normal mood and affect Neuro: AAO x 3, no motor deficits, speech is clear,+ LLE peripheral sensory deficits below the knee, sensation intact in thighs bilaterally, pt is able to wiggle toes.
--- NOTE | 2018-10-27 14:14 | Pharmacy Report ---
Pharmacy Glycemic Short Note 2 - Date of Service October 27, 2018 - Glycemic Short BSG Results (Last 24 hours): 10/26/18 10/26/18 10/26/18 17:21 20:21 23:58 Glucose POC Glucose 194 H 227 H 161 H 10/27/18 10/27/18 10/27/18 05:19 08:13 12:29 Glucose 181 H POC Glucose 180 H 163 H ASSESSMENT: 3-1: * Patient received total of 33 units of insulin yesterday, of which 15 units were basal insulin * Fasting BSG elevated at 181 mg/dL - will order Lantus for this AM and add scale for tonight * BSGs trending down at lunchtime today to 163 mg/dL - will continue current CF/CR, may need to scale back in AM * Scr increased today - will continue to hold oral agents 10-26: * Patient is a 63 year old female now s/p L knee arthroplasty. PMH significant for htn, hld, anemia, and osteoarthritis. * Type 2 diabetic managed only on oral agents at home. A1C indicates good glycemic control ~ 6.7% * Patient received steroids preop procedure therefore anticipate steroid induced hyperglycemia - will utilize basal/bolus dosing for postop procedure PLAN FOR INPATIENT GLYCEMIC CONTROL: * Pt is maintained on oral antidiabetic agents as an outpatient * Oral agents are not recommended for inpatient use d/t drug interactions, changing PO intake, and difficulty titrating for acute hyper/hypoglycemia. ADA recommends re-initiating outpatient oral agents 1-2 days prior to discharge if/when appropriate if they were held on admission. * Will hold oral agents for admission and utilize SQ basal bolus insulin regimen which is the recommended regimen for inpatient glycemic control. * Will initiate weight based insulin dosing for insulin na�ve patient and titrate based on BSG trends. * Basal insulin * Lantus 15 units x 1 this am * Lantus HS per scale -For BSG less than 140 - no Lantus -For BSG 140-200 - Lantus 7 units -For BSG greater than 200 - Lantus 15 units * Bolus insulin - no change * NovoLog per scale ACHS or Q6hrs while NPO * Goal Range: Low 110 mg/dL - High 140 mg/dL * Correction Factor: 20 mg/dL/unit * Nutritional / Prandial insulin per carb ratio of 1 unit per 7 grams CHO consumed
[2018-10-27] MEDS: dilTIAZem HCL 120 MG CAPCR PO SCH (15:35)
[2018-10-27] MEDS ORDERED: LANTUS PER UNIT CHARGE SQ SCH (21:00)
--- NOTE | 2018-10-29 09:03 | Discharge Summary ---
Date of Service October 29, 2018 Admission HPI Per Admitting Provider 63 year old female who presents with left knee pain for several months to years. Past medical history significant for HTN, high cholesterol, hypothyroid, ART, DM2, GERD. She has failed conservative measures including cortisone injections, viscosupplementation, and anti-inflammtory medications. She would like to proceed with left total knee arthroplasty. Patient denies headaches, sweats, fevers, chills, double vision, blurred vision, cough, sore throat, dysphagia, chest pain, sob, wheezing, n/v/d/c, numbness, tingling, fatigue, urinary symptoms, mood disorders. ROS positive for left knee pain and stiffness. DOS is at [facility]. Admission Exam Per Admitting Provider Constitutional: well developed and well nourished; no acute distress Eyes: PERRL, conjunctivae normal, anicteric sclerae ENMT: external ear and nose normal, oropharynx normal Neck: trachea midline, no thyromegaly Respiratory: normal respiratory effort, lungs clear to auscultation Cardiovascular: RRR, no murmur, no edema Musculoskeletal: Left knee: ROM 0-130, moderate crepitus with ROM. Medial joint line tenderness, mild varus alignment. Stable to valgus and varus stress. Skin: no rashes, warm and dry Neurologic: patellar DTR's 2+ bilat, sensation intact Psychiatric: A+Ox3, euthymic affect Principal Diagnosis Left knee DJD, DM2, HTN Discharge Exam Constitutional well developed and well nourished; no acute distress Eyes PERRL, conjunctivae normal, anicteric sclerae ENMT external ear and nose normal, oropharynx normal Neck trachea midline, no thyromegaly Respiratory normal respiratory effort, lungs clear to auscultation Cardiovascular RRR, no murmur, no edema Skin no rashes, warm and dry Neurologic patellar DTR's 2+ bilat, sensation intact Psychiatric A+Ox3, euthymic affect Discharge Data Allergies Allergy/AdvReac Type Severity Reaction Status Date / Time tizanidine Allergy Unknown PALPATATION Verified 10/26/18 08:35 S bromocriptine AdvReac Unknown NAUSEA AND Verified 10/26/18 08:35 VOMITING codeine AdvReac Unknown NAUSEA AND Verified 10/26/18 08:35 VOMITING Consultations 10/26/18 12:51 Consult Case Management - Discharge Planning Routine Consult Hospitalist Routine Procedures Performed Operation Date: 10/26/18 11:00 Actual Procedures p Left Total Knee Arthroplasty(Left) - Fidel Garza MD Ordered Studies 10/26/18 05:00 US - OR guided needle placemen Routine Hospital Course (1) S/P total knee arthroplasty: Patient presented for same day admission following left total knee arthroplasty on 10/26/18. She tolerated procedure well. The Patient had an uneventful hospital course. Post-operatively, her activity was progressed and well tolerated. They participated in PT with ambulation distance of 325feet. ROM of operative knee reached 105 degrees. Labs remained stable- lowest hemoglobin recorded: 12.[address] Qian Brown of medical service was consulted for medical management during admission. Pain controlled on oral medications. Please refer to daily progress notes and PT notes for complete details. After exam on 10/27/18, patient was felt to be stable for discharge home with home health PT. Patient will f/u in the office in about 2 weeks for further evaluation including x-rays and incision check, sooner if having any issues or concerns. Lab Results 09/20/18 09/20/18 09/20/18 Range/Units 12:15 12:15 12:15 WBC 8.00 (4.8-10.8) K/uL RBC 4.52 (4.2-5.4) M/uL Hgb 14.2 (12.0-16.0) g/dL Hct 42.2 (37-47) % MCV 93.4 (80-100) fL MCH 31.4 (25-34) pg MCHC 33.6 (32-36) g/dL RDW Std Deviation 46.8 H (36.4-46.3) fL RDW Coeff of Rian 13.7 (11.5-14.5) % Plt Count 310 (130-400) K/uL MPV 10.6 H (7.4-10.4) fL Immature Gran % (Auto) 0.3 % Neut % (Auto) 60.3 % Lymph % (Auto) 28.4 % Baldwin % (Auto) 8.0 % Eos % (Auto) 2.6 % Baso % (Auto) 0.4 % Immature Gran # (Auto) 0.02 (0.00-0.02) K/uL Neut # (Auto) 4.83 (1.4-6.5) K/uL Lymph # (Auto) 2.27 (1.2-3.4) K/uL Baldwin # (Auto) 0.64 H (0.11-0.59) K/uL Eos # (Auto) 0.21 (0-0.5) K/uL Baso # (Auto) 0.03 (0-0.2) K/uL PT 10.1 (9.0-12.0) Seconds INR 1.0 (0.9-1.1) APTT 27.8 (21.0-31.0) Seconds PTT Ratio 1.1 Sodium 130 L (136-145) mmol/L Potassium 4.4 (3.5-5.1) mmol/L Chloride 94 L (98-107) mmol/L Carbon Dioxide 24 (21-32) mmol/L Anion Gap 11.0 (3-11) BUN 23 H (7-18) mg/dl Creatinine 1.16 (0.6-1.2) mg/dl Est Cr Clr Drug Dosing 49.5 ml/min Est GFR ( Amer) 58.0 Est GFR (Non-Af Amer) 50.1 BUN/Creatinine Ratio 19.9 (10-20) Glucose 131 H (70-99) mg/dl POC Glucose (70-99) Estimat Average Glucose mg/dl Hemoglobin A1c (4.5-5.6) % Calcium 9.8 (8.5-10.1) mg/dl Albumin 4.2 (3.4-5.0) gm/dl Urine Color Urine Appearance (Clear) Urine pH (4.5-7.5) Ur Specific Kemp (1.000-1.030) Urine Protein (Negative) Urine Glucose (UA) (Negative) Urine Ketones (Negative) Urine Blood (Negative) Urine Nitrite (Negative) Urine Bilirubin (Negative) Urine Urobilinogen (Negative) Ur Leukocyte Esterase (Negative) Blood Type Antibody Screen 09/20/18 09/20/18 09/20/18 Range/Units 12:15 12:15 12:15 WBC (4.8-10.8) K/uL RBC (4.2-5.4) M/uL Hgb (12.0-16.0) g/dL Hct (37-47) % MCV (80-100) fL MCH (25-34) pg MCHC (32-36) g/dL RDW Std Deviation (36.4-46.3) fL RDW Coeff of Rian (11.5-14.5) % Plt Count (130-400) K/uL MPV (7.4-10.4) fL Immature Gran % (Auto) % Neut % (Auto) % Lymph % (Auto) % Baldwin % (Auto) % Eos % (Auto) % Baso % (Auto) % Immature Gran # (Auto) (0.00-0.02) K/uL Neut # (Auto) (1.4-6.5) K/uL Lymph # (Auto) (1.2-3.4) K/uL Baldwin # (Auto) (0.11-0.59) K/uL Eos # (Auto) (0-0.5) K/uL Baso # (Auto) (0-0.2) K/uL PT (9.0-12.0) Seconds INR (0.9-1.1) APTT (21.0-31.0) Seconds PTT Ratio Sodium (136-145) mmol/L Potassium (3.5-5.1) mmol/L Chloride (98-107) mmol/L Carbon Dioxide (21-32) mmol/L Anion Gap (3-11) BUN (7-18) mg/dl Creatinine (0.6-1.2) mg/dl Est Cr Clr Drug Dosing ml/min Est GFR ( Amer) Est GFR (Non-Af Amer) BUN/Creatinine Ratio (10-20) Glucose (70-99) mg/dl POC Glucose (70-99) Estimat Average Glucose 146 mg/dl Hemoglobin A1c 6.7 H (4.5-5.6) % Calcium (8.5-10.1) mg/dl Albumin (3.4-5.0) gm/dl Urine Color Yellow Urine Appearance Clear (Clear) Urine pH 5.5 (4.5-7.5) Ur Specific Kemp 1.022 (1.000-1.030) Urine Protein Negative (Negative) Urine Glucose (UA) 3+ H (Negative) Urine Ketones Negative (Negative) Urine Blood Negative (Negative) Urine Nitrite Negative (Negative) Urine Bilirubin Negative (Negative) Urine Urobilinogen Negative (Negative) Ur Leukocyte Esterase Negative (Negative) Blood Type O Positive Antibody Screen NEGATIVE 10/26/18 10/26/18 10/26/18 Range/Units 08:34 12:52 17:21 WBC (4.8-10.8) K/uL RBC (4.2-5.4) M/uL Hgb (12.0-16.0) g/dL Hct (37-47) % MCV (80-100) fL MCH (25-34) pg MCHC (32-36) g/dL RDW Std Deviation (36.4-46.3) fL RDW Coeff of Rian (11.5-14.5) % Plt Count (130-400) K/uL MPV (7.4-10.4) fL Immature Gran % (Auto) % Neut % (Auto) % Lymph % (Auto) % Baldwin % (Auto) % Eos % (Auto) % Baso % (Auto) % Immature Gran # (Auto) (0.00-0.02) K/uL Neut # (Auto) (1.4-6.5) K/uL Lymph # (Auto) (1.2-3.4) K/uL Baldwin # (Auto) (0.11-0.59) K/uL Eos # (Auto) (0-0.5) K/uL Baso # (Auto) (0-0.2) K/uL PT (9.0-12.0) Seconds INR (0.9-1.1) APTT (21.0-31.0) Seconds PTT Ratio Sodium (136-145) mmol/L Potassium (3.5-5.1) mmol/L Chloride (98-107) mmol/L Carbon Dioxide (21-32) mmol/L Anion Gap (3-11) BUN (7-18) mg/dl Creatinine (0.6-1.2) mg/dl Est Cr Clr Drug Dosing ml/min Est GFR ( Amer) Est GFR (Non-Af Amer) BUN/Creatinine Ratio (10-20) Glucose (70-99) mg/dl POC Glucose 126 H 122 H 194 H (70-99) Estimat Average Glucose mg/dl Hemoglobin A1c (4.5-5.6) % Calcium (8.5-10.1) mg/dl Albumin (3.4-5.0) gm/dl Urine Color Urine Appearance (Clear) Urine pH (4.5-7.5) Ur Specific Kemp (1.000-1.030) Urine Protein (Negative) Urine Glucose (UA) (Negative) Urine Ketones (Negative) Urine Blood (Negative) Urine Nitrite (Negative) Urine Bilirubin (Negative) Urine Urobilinogen (Negative) Ur Leukocyte Esterase (Negative) Blood Type Antibody Screen 10/26/18 10/26/18 10/27/18 Range/Units 20:21 23:58 05:19 WBC 12.46 H (4.8-10.8) K/uL RBC 4.14 L (4.2-5.4) M/uL Hgb 12.9 (12.0-16.0) g/dL Hct 38.0 (37-47) % MCV 91.8 (80-100) fL MCH 31.2 (25-34) pg MCHC 33.9 (32-36) g/dL RDW Std Deviation 43.8 (36.4-46.3) fL RDW Coeff of Rian 13.0 (11.5-14.5) % Plt Count 299 (130-400) K/uL MPV 11.0 H (7.4-10.4) fL Immature Gran % (Auto) % Neut % (Auto) % Lymph % (Auto) % Baldwin % (Auto) % Eos % (Auto) % Baso % (Auto) % Immature Gran # (Auto) (0.00-0.02) K/uL Neut # (Auto) (1.4-6.5) K/uL Lymph # (Auto) (1.2-3.4) K/uL Baldwin # (Auto) (0.11-0.59) K/uL Eos # (Auto) (0-0.5) K/uL Baso # (Auto) (0-0.2) K/uL PT (9.0-12.0) Seconds INR (0.9-1.1) APTT (21.0-31.0) Seconds PTT Ratio Sodium (136-145) mmol/L Potassium (3.5-5.1) mmol/L Chloride (98-107) mmol/L Carbon Dioxide (21-32) mmol/L Anion Gap (3-11) BUN (7-18) mg/dl Creatinine (0.6-1.2) mg/dl Est Cr Clr Drug Dosing ml/min Est GFR ( Amer) Est GFR (Non-Af Amer) BUN/Creatinine Ratio (10-20) Glucose (70-99) mg/dl POC Glucose 227 H 161 H (70-99) Estimat Average Glucose mg/dl Hemoglobin A1c (4.5-5.6) % Calcium (8.5-10.1) mg/dl Albumin (3.4-5.0) gm/dl Urine Color Urine Appearance (Clear) Urine pH (4.5-7.5) Ur Specific Kemp (1.000-1.030) Urine Protein (Negative) Urine Glucose (UA) (Negative) Urine Ketones (Negative) Urine Blood (Negative) Urine Nitrite (Negative) Urine Bilirubin (Negative) Urine Urobilinogen (Negative) Ur Leukocyte Esterase (Negative) Blood Type Antibody Screen 10/27/18 10/27/18 10/27/18 Range/Units 05:19 08:13 12:29 WBC (4.8-10.8) K/uL RBC (4.2-5.4) M/uL Hgb (12.0-16.0) g/dL Hct (37-47) % MCV (80-100) fL MCH (25-34) pg MCHC (32-36) g/dL RDW Std Deviation (36.4-46.3) fL RDW Coeff of Rian (11.5-14.5) % Plt Count (130-400) K/uL MPV (7.4-10.4) fL Immature Gran % (Auto) % Neut % (Auto) % Lymph % (Auto) % Baldwin % (Auto) % Eos % (Auto) % Baso % (Auto) % Immature Gran # (Auto) (0.00-0.02) K/uL Neut # (Auto) (1.4-6.5) K/uL Lymph # (Auto) (1.2-3.4) K/uL Baldwin # (Auto) (0.11-0.59) K/uL Eos # (Auto) (0-0.5) K/uL Baso # (Auto) (0-0.2) K/uL PT (9.0-12.0) Seconds INR (0.9-1.1) APTT (21.0-31.0) Seconds PTT Ratio Sodium 138 (136-145) mmol/L Potassium 4.0 (3.5-5.1) mmol/L Chloride 107 (98-107) mmol/L Carbon Dioxide 23 (21-32) mmol/L Anion Gap 8.0 (3-11) BUN 31 H (7-18) mg/dl Creatinine 1.36 H (0.6-1.2) mg/dl Est Cr Clr Drug Dosing 40.7 ml/min Est GFR ( Amer) 47.9 Est GFR (Non-Af Amer) 41.3 BUN/Creatinine Ratio 22.4 H (10-20) Glucose 181 H (70-99) mg/dl POC Glucose 180 H 163 H (70-99) Estimat Average Glucose mg/dl Hemoglobin A1c (4.5-5.6) % Calcium 8.9 (8.5-10.1) mg/dl Albumin (3.4-5.0) gm/dl Urine Color Urine Appearance (Clear) Urine pH (4.5-7.5) Ur Specific Kemp (1.000-1.030) Urine Protein (Negative) Urine Glucose (UA) (Negative) Urine Ketones (Negative) Urine Blood (Negative) Urine Nitrite (Negative) Urine Bilirubin (Negative) Urine Urobilinogen (Negative) Ur Leukocyte Esterase (Negative) Blood Type Antibody Screen Total Time Total Time Spent Total Time Spent (In Minutes): 20 Discharge Plan Discharge Items Patient Disposition: Home - Home Health Services Reason For Visit: LEFT KNEE OSTEOARTHRITIS Discharge Diagnosis: Left knee osteoarthritis Discharge Goals: Decrease discomfort Activity: Per 'Additional Instructions' section Non-emergency contact: Surgeon Call non-emergency contact if: you have any medication questions, your pain is not controlled, your pain is concerning for you, your temperature is above 101, your wound has increased redness, your wound has increased drainage and your wound pain has increased Follow-up/Referrals: Olena Loaiza DO [Primary Care Provider] - Diet: Carb Consistent or DM2 Addtl Provider Instructions: Recheck BMP in 1 week. ACTIVITY RECOMMENDATIONS: SELF CARE INSTRUCTIONS AFTER TOTAL KNEE REPLACEMENT A. You may need to continue a physical therapy program after discharge from the hospital. There are several options available to you. Your doctor will assist you in selecting the best one for you. 1. An out-patient facility 2 to 3 times a week for therapy or home therapy. 2. Continue working on all exercises taught to you in the hospital. Your goals should be to increase bending of your knee to 90 degrees and beyond and to fully straighten your knee. B. You may progress at your own pace from walking with a walker or crutches to a cane; then to no assistive devices. C. Make walking a part of your daily routine. Be up as much as comfortable with rest periods throughout the day. Rest with leg elevation is very important. Use the ice wrap frequently for the first 3-4 weeks. D. There are no restrictions on activities. You may ride in a car, shop, participate in assessment analyst and all social activities. E. Wear the long elastic stockings (ALEENA hose) 20 hours a day for 2 weeks after surgery. They can be removed several times a day for laundering and for a bath. F. You may shower, no tub baths until cleared by your doctor. SPECIAL CARE INSTRUCTIONS: VERY IMPORTANT TO READ AND REVIEW A. There are a few signs you need to watch for after you are home. Call [facility] if you notice any of the followin. Increased severe knee pain. Some pain is expected especially when you exercise. 2. Increased swelling in your leg or knee; pain or swelling of the calf muscle in either lower leg. 3. Any fluid drainage from the incision. 4. Shortness of breath or chest pain. B. Please call [facility] at if you have any concerns or questions about your operation or recovery. The doctor or his nurse will return your call promptly. C. You must take antibiotics before dental work, bladder, bowel or other surgery. Your doctor will provide you with a permanent care to carry describing this precaution. IMPORTANT: * REMEMBER TO TAKE ASPIRIN, 81 MG, TWICE DAILY FOR 4 WEEKS UNLESS OTHERWISE DIRECTED. THIS IS YOUR BLOOD THINNER. * HIGH RISK PATIENTS MAY BE PRESCRIBED A STRONGER BLOOD THINNER. THIS WILL BE PROVIDED AT DISCHARGE. * CALL IF INCREASED PAIN, REDNESS, DRAINAGE OR FEVER GREATER THAT 101. * WEAR ALEENA HOSE 20 HOURS PER DAY FOR 2 WEEKS. This is a large suction dressing covering your incision. This will help pull any excess drainage from the wound and allow your incision to heal properly. You may shower with this if you can keep the unit outside of the shower. If any bleeding or leakage is noted please call your doctor's office. This will remain on your incision for 7 days and then should be removed. This can be done yourself or by the home nursing staff if applicable. The entire unit is disposable once removed. Once removed, keep incision clean and dry. If redness or drainage is noted, please call your surgeon. There is a mesh tape dressing that is covered with glue. It should remain in place until the incision is properly healed, usually 10-14 days. This dressing is designed to naturally slough off. You may trim the excess mesh tape as it peels off. Incision may be briefly wet in a shower. Dry immediately by blotting with a clean, dry towel. Do not bath or swim until instructed by your doctor. Do not scratch, rub, or pick at the dressing. Do not apply any topical ointments or lotions until dressing is completely removed and/or instructed by your doctor. There may be a small piece of suture material at one end of your incision. Do not pull or trim this. If it is bothersome or catching on clothing, you may cover it with a band-aid. IF INCISION IS LEAKING THROUGH DRESSING, CALL THE OFFICE . FOLLOW UP VISIT: If appointment is not already scheduled: Please call [facility] to make a follow-up appointment for 2 weeks after your surgery at . Prescriptions: New aspirin [Ecotrin Low Strength] 81 mg Tablet,Delayed Release (Dr/Ec) 81 mg PO BID Qty: 60 RF: 0 acetaminophen [Pain Reliever] 500 mg Tablet 1,000 mg PO Q8 Qty: 60 RF: 0 oxycodone 5 mg tablet 5 - 10 mg PO .Q4H-6H MDD 6 PRN (Reason: pain) Qty: 30 RF: 0 cefadroxil 500 mg capsule 500 mg PO BID Qty: 28 RF: 0 Continued multivitamin Tablet 1 tab PO QAM RF: 0 cetirizine [Zyrtec] 10 mg Tablet 10 mg PO QPM RF: 0 olanzapine 5 mg Tablet 5 mg PO QPM RF: 0 metformin 1,000 mg Tablet 1,000 mg PO BID RF: 0 levothyroxine 125 mcg Tablet 125 mcg PO QAM RF: 0 metoprolol tartrate 50 mg Tablet 50 mg PO QAM RF: 0 diltiazem HCl 120 mg Capsule,Extended Release 24hr 120 mg PO DAILY RF: 0 Folbic 2.5-25-2 mg Tablet 1 tab PO BID RF: 0 Calcium 600 + D(3) 600 mg calcium- 200 unit Capsule 1 tab PO BID RF: 0 melatonin 5 mg Tablet 5 mg PO HS RF: 0 Invokana 300 mg Tablet 300 mg PO QAM RF: 0 atorvastatin 40 mg Tablet 40 mg PO AC RF: 0 glipizide 10 mg Tablet 10 mg PO QAM RF: 0 amoxicillin 500 mg Tablet 500 mg PO DIRECTED PRN (Reason: pre dental) RF: 0 [id number]-ihvdatiaa-[id number] Tablet 1 tab PO QAM RF: 0 methocarbamol 750 mg Tablet 750 mg PO BID RF: 0 promethazine 25 mg Tablet 25 mg PO Q6H PRN (Reason: Nausea) RF: 0 gabapentin 300 mg Capsule 300 mg PO BID RF: 0 lisinopril-hydrochlorothiazide 20-25 mg Tablet 1 tab PO QAM RF: 0 fluticasone [Flonase Allergy Relief] 50 mcg/actuation [place],Suspension 1 spray INTRANASAL BID RF: 0 azelastine 0.15 % (205.5 mcg) [place],Non-Aerosol 1 spray INTRANASAL BID RF: 0 omega 0-eua-xax-fish oil [Fish Oil] 1,000 mg (120 mg-180 mg) Capsule 1 cap PO QAM RF: 0 gabapentin 300 mg Tablet Extended Release 24 Hr 900 mg PO PM RF: 0 Aspercreme Heat RF: 0 Icy Hot RF: 0 ranitidine HCl 150 mg Capsule 150 mg PO HS RF: 0 Discontinued aspirin [Aspirin Low Dose] 81 mg Tablet,Delayed Release (Dr/Ec) 81 mg PO QAM RF: 0 naproxen 500 mg Tablet 500 mg PO BIDM RF: 0 Tylenol tablet 2 tab PO Q4 PRN (Reason: Pain) RF: 0 Stand-Alone Forms: School Admissions, Opioid Pain Management Krames/Other Patient Handouts: Surgery Prevent DVT After, Replacement Knee Home After Discharge Orders: Discharge Order (Routine); Ordered 10/27/18 Ordered By: Nelson Luis Admission Data Admit Date/Time: 10/26/18 13:37 Attending Provider: Fidel Garza Admit Provider: Fidel Garza Primary Care Provider: Olena Loaiza Other Providers: Rock Louis Service: Surgical Services Other Interventions: Discharge Summary Assessment (RN) Last Done: 10/27/18 14:10 Pending Studies at Discharge: No DC Date/Time DO NOT enter until pt leaves facility: 10/27/18 16:01
== END 2018-10-27 16:01 | disposition home health service (06) | DRG 470 ==
LOC: ASU 08:06 → 3E 13:37
DX: G47.33 Obstructive sleep apnea (adult) (pediatric); E11.9 Type 2 diabetes mellitus without complications; E78.5 Hyperlipidemia, unspecified; E03.9 Hypothyroidism, unspecified; E66.9 Obesity, unspecified; Z79.82 Long term (current) use of aspirin; Z68.30 Body mass index [BMI] 30.0-30.9, adult; Z79.84 Long term (current) use of oral hypoglycemic drugs; K21.9 Gastro-esophageal reflux disease without esophagitis; M17.12 Unilateral primary osteoarthritis, left knee; I10 Essential (primary) hypertension